=== PATIENT | female | born 1940 | race Caucasian/White ===

== ENCOUNTER 2020-02-25 09:28 | Outpatient (REF) | payer MEDICARE, OTHER, SELFPAY ==
[2020-02-25 09:50] LABS: MANUAL DIFF FLAG NO
[2020-02-25 09:53] LABS: Basophils Percent Auto 0.6 % (0-2); Eosinophils Absolute Auto 0.1 X10*3/uL (0.0-0.4); Hematocrit 39.6 % (37-47); Hemoglobin 12.7 g/dl (12.0-16.0); Imm Gran Abs Auto 0.01 X10*3/uL (0.00-0.03); Imm Gran Pct Auto 0.2 % (0.0-0.4); Lymphocytes Absolute Auto 1.8 X10*3/uL (1.2-4.9); Lymphocytes Percent Auto 35.1 % (20-40); Mean Corpuscular HGB Conc 32.1 g/dl (31.0-35.0); Mean Corpuscular Volume 105.9 fL (80-98); Mean Platelet Volume 9.7 fL (9.4-12.3); Monocytes Absolute Auto 0.3 X10*3/uL (0.1-1.2); Monocytes Percent Auto 6.8 % (2-11); Neutrophils Absolute Auto 2.8 X10*3/uL (2.0-8.3); Neutrophils Percent Auto 56.3 % (45-73); Platelet Count 214 X10*3/uL (160-400); Red Blood Count 3.74 X10*6/uL (4.20-5.50); Red Cell Distribution Width 11.5 % (11.0-16.0)
[2020-02-25 10:20] LABS: Alanine Aminotransferase 8 U/L (0-31); Albumin Level 4.4 g/dL (3.5-5.0); Alkaline Phosphatase 40 U/L (39-117); Anion Gap 10 (12-20); Aspartate Amino Transferase 15 U/L (5-31); Bilirubin Total 0.7 mg/dL (0.0-1.0); Blood Urea Nitrogen 17 mg/dL (9-16); C Reactive Protein 0.11 mg/dL (< or = 0.50); Calcium 9.7 mg/dL (8.4-10.2); Carbon Dioxide 30 mmol/L (22-29); Chloride 104 mmol/L (96-108); Estimated Glomerular Filt Rate > 60; Glucose Random 96 mg/dL (60-115); Potassium 4.1 mmol/l (3.3-5.1); Sodium 140 mmol/L (135-145); Total Protein 6.9 g/dL (6.5-8.0)
[2020-02-25 11:57] LABS: Erythrocyte Sedimentation Rate 10 MM/HR (0-20)
== END 2020-02-25 09:29 | disposition home or self-care (01) ==
LOC: HO.LAB 09:28
PROVIDERS: PCP Internal Medicine; Visit Provider Student in an Organized Health Care Education/Training Program
DX: M06.00 Rheumatoid arthritis without rheumatoid factor, unspecified site (principal)
CPT/HCPCS: 36415; 80053; 85025; 85652; 86140

== ENCOUNTER → 2020-02-26 10:14 | Outpatient (BNVA) | payer MEDICARE, OTHER, SELFPAY | PROVIDERS: PCP Internal Medicine; Visit Provider Student in an Organized Health Care Education/Training Program | DX: M06.00 Rheumatoid arthritis without rheumatoid factor, unspecified site (principal); Z79.899 Other long term (current) drug therapy | CPT/HCPCS: 99213 ==

== ENCOUNTER 2020-07-22 08:12 | Outpatient (REF) | payer MEDICARE, OTHER, SELFPAY ==
[2020-07-22 08:51] LABS: MANUAL DIFF FLAG NO
[2020-07-22 08:54] LABS: Basophils Percent Auto 0.6 % (0-2); Eosinophils Percent Auto 0.4 % (0-4); Hematocrit 39.6 % (37-47); Hemoglobin 12.7 g/dl (12.0-16.0); Imm Gran Abs Auto 0.01 X10*3/uL (0.00-0.03); Imm Gran Pct Auto 0.2 % (0.0-0.4); Lymphocytes Absolute Auto 1.4 X10*3/uL (1.2-4.9); Lymphocytes Percent Auto 27.5 % (20-40); Mean Corpuscular HGB Conc 32.1 g/dl (31.0-35.0); Mean Corpuscular Volume 105.9 fL (80-98); Mean Platelet Volume 9.8 fL (9.4-12.3); Monocytes Absolute Auto 0.3 X10*3/uL (0.1-1.2); Monocytes Percent Auto 5.8 % (2-11); Neutrophils Absolute Auto 3.4 X10*3/uL (2.0-8.3); Neutrophils Percent Auto 65.5 % (45-73); Platelet Count 273 X10*3/uL (160-400); Red Blood Count 3.74 X10*6/uL (4.20-5.50); Red Cell Distribution Width 11.8 % (11.0-16.0); White Blood Count 5.2 X10*3/uL (4.8-10.8)
[2020-07-22 09:27] LABS: Alanine Aminotransferase 10 U/L (0-31); Albumin Level 4.4 g/dL (3.5-5.0); Alkaline Phosphatase 43 U/L (39-117); Anion Gap 14 (12-20); Aspartate Amino Transferase 18 U/L (5-31); Bilirubin Total 0.6 mg/dL (0.0-1.0); Blood Urea Nitrogen 22 mg/dL (9-16); C Reactive Protein 0.15 mg/dL (< or = 0.50); Calcium 9.9 mg/dL (8.4-10.2); Carbon Dioxide 26 mmol/L (22-29); Chloride 106 mmol/L (96-108); Estimated Glomerular Filt Rate > 60; Glucose Random 88 mg/dL (60-115); Potassium 4.2 mmol/L (3.3-5.1); Sodium 142 mmol/L (135-145)
[2020-07-22 09:54] LABS: Erythrocyte Sedimentation Rate 10 MM/HR (0-20)
== END 2020-07-22 08:13 | disposition home or self-care (01) ==
LOC: HO.LAB 08:12
PROVIDERS: PCP Internal Medicine; Visit Provider Student in an Organized Health Care Education/Training Program
DX: M06.00 Rheumatoid arthritis without rheumatoid factor, unspecified site (principal)
CPT/HCPCS: 36415; 80053; 85025; 85652; 86140

== ENCOUNTER → 2020-07-23 10:51 | Outpatient (BNVA) | payer MEDICARE, OTHER, SELFPAY | PROVIDERS: PCP Internal Medicine; Visit Provider Student in an Organized Health Care Education/Training Program | DX: M06.00 Rheumatoid arthritis without rheumatoid factor, unspecified site (principal); Z79.899 Other long term (current) drug therapy | CPT/HCPCS: 99212 ==

== ENCOUNTER 2020-08-26 10:42 | Outpatient (REF) | payer MEDICARE, OTHER, SELFPAY ==
[2020-08-26 12:26] LABS: Basophils Percent Auto 0.6 % (0-2); Eosinophils Absolute Auto 0.1 X10*3/uL (0.0-0.4); Eosinophils Percent Auto 0.8 % (0-4); Hematocrit 39.9 % (37-47); Hemoglobin 12.9 g/dl (12.0-16.0); Imm Gran Abs Auto 0.01 X10*3/uL (0.00-0.03); Imm Gran Pct Auto 0.2 % (0.0-0.4); Lymphocytes Percent Auto 30.3 % (20-40); MANUAL DIFF FLAG SCAN; Mean Corpuscular HGB Conc 32.3 g/dl (31.0-35.0); Mean Corpuscular Hemoglobin 33.7 pg (27.0-33.0); Mean Corpuscular Volume 104.2 fL (80-98); Mean Platelet Volume 10.3 fL (9.4-12.3); Monocytes Absolute Auto 0.4 X10*3/uL (0.1-1.2); Monocytes Percent Auto 5.9 % (2-11); Neutrophils Absolute Auto 4.1 X10*3/uL (2.0-8.3); Neutrophils Percent Auto 62.2 % (45-73); Platelet Count 246 X10*3/uL (160-400); Red Blood Count 3.83 X10*6/uL (4.20-5.50); Red Cell Distribution Width 11.5 % (11.0-16.0); SCAN SMEAR FLAG 1; White Blood Count 6.6 X10*3/uL (4.8-10.8)
[2020-08-26 13:23] LABS: SLIDE REVIEW VERIFIED
== END 2020-08-26 10:43 | disposition home or self-care (01) ==
LOC: HO.10HDL 10:42
PROVIDERS: Visit Provider Internal Medicine
DX: M06.00 Rheumatoid arthritis without rheumatoid factor, unspecified site (principal)
CPT/HCPCS: 36415; 85025

== ENCOUNTER 2020-11-21 13:54 | Outpatient (REF) | payer MEDICARE, OTHER, SELFPAY ==
[2020-11-21 14:24] LABS: MANUAL DIFF FLAG NO
[2020-11-21 14:27] LABS: Basophils Percent Auto 0.5 % (0-2); Eosinophils Absolute Auto 0.1 X10*3/uL (0.0-0.4); Eosinophils Percent Auto 1.1 % (0-4); Hematocrit 38.5 % (37-47); Hemoglobin 12.5 g/dl (12.0-16.0); Imm Gran Abs Auto 0.01 X10*3/uL (0.00-0.03); Imm Gran Pct Auto 0.2 % (0.0-0.4); Lymphocytes Percent Auto 32.6 % (20-40); Mean Corpuscular HGB Conc 32.5 g/dl (31.0-35.0); Mean Corpuscular Volume 104.6 fL (80-98); Mean Platelet Volume 9.9 fL (9.4-12.3); Monocytes Absolute Auto 0.4 X10*3/uL (0.1-1.2); Monocytes Percent Auto 6.9 % (2-11); Neutrophils Absolute Auto 3.6 X10*3/uL (2.0-8.3); Neutrophils Percent Auto 58.7 % (45-73); Platelet Count 230 X10*3/uL (160-400); Red Blood Count 3.68 X10*6/uL (4.20-5.50); Red Cell Distribution Width 11.5 % (11.0-16.0); White Blood Count 6.1 X10*3/uL (4.8-10.8)
[2020-11-21 14:49] LABS: Alanine Aminotransferase 8 U/L (0-31); Albumin Level 4.4 g/dL (3.5-5.0); Alkaline Phosphatase 42 U/L (39-117); Anion Gap 12 (12-20); Aspartate Amino Transferase 16 U/L (5-31); Bilirubin Total 0.5 mg/dL (0.0-1.0); Blood Urea Nitrogen 20 mg/dL (9-16); C Reactive Protein 0.08 mg/dL (< or = 0.50); Calcium 10.2 mg/dL (8.4-10.2); Carbon Dioxide 27 mmol/L (22-29); Chloride 107 mmol/L (96-108); Estimated Glomerular Filt Rate > 60; Glucose Random 81 mg/dL (60-115); Potassium 4.4 mmol/L (3.3-5.1); Sodium 142 mmol/L (135-145)
[2020-11-21 15:13] LABS: Erythrocyte Sedimentation Rate 8 MM/HR (0-20)
== END 2020-11-21 13:55 | disposition home or self-care (01) ==
LOC: HO.LAB 13:54
PROVIDERS: PCP Internal Medicine; Visit Provider Student in an Organized Health Care Education/Training Program
DX: M06.00 Rheumatoid arthritis without rheumatoid factor, unspecified site (principal)
CPT/HCPCS: 36415; 80053; 85025; 85652; 86140

== ENCOUNTER → 2020-11-25 10:17 | Outpatient (BNVA) | payer MEDICARE, OTHER, SELFPAY | PROVIDERS: PCP Internal Medicine; Visit Provider Student in an Organized Health Care Education/Training Program | DX: M06.00 Rheumatoid arthritis without rheumatoid factor, unspecified site (principal) | CPT/HCPCS: 99212 ==

== ENCOUNTER 2021-01-27 10:48 | Outpatient (REF) | payer MEDICARE, OTHER, SELFPAY ==
--- NOTE | ~2021-01-27 | MM_ITS ---
EXAMINATION: MM SCREENING DIGITAL BREAST TOMOSYNTHESIS, BILATERAL CLINICAL INFORMATION: Screening. Asymptomatic. The lifetime risk of breast cancer based on the Tyrer-Cuzick Model is 0.9%. COMPARISON: Mammography: January 25, 2019 and studies dating back to February 23, 2008 TECHNIQUE: Digital breast tomosynthesis is performed in both the craniocaudal and mediolateral oblique views along with computer-aided detection (CAD). Synthesized 2D images are generated from the tomosynthesis. FINDINGS: There are scattered areas of fibroglandular density (ACR BI-RADS breast composition Category b). There are no significant masses, abnormal calcifications, or other abnormalities. MM/MM tomosynthesis screening BI IMPRESSION: There are no significant changes from prior study. ASSESSMENT: BI-RADS 1: Negative RECOMMENDATION: Routine annual mammography screening. This patient's information was entered into a reminder system with a target due date for their next mammogram.
== END 2021-01-27 10:49 | disposition home or self-care (01) ==
LOC: HO.MAMMO 10:48
PROVIDERS: PCP Internal Medicine; Visit Provider Internal Medicine
DX: Z12.31 Encounter for screening mammogram for malignant neoplasm of breast (principal)
CPT/HCPCS: 77063; 77067

== ENCOUNTER 2021-02-03 11:31 | Outpatient (REF) | payer MEDICARE, OTHER, SELFPAY ==
[2021-02-03 13:54] LABS: MANUAL DIFF FLAG NO
[2021-02-03 14:02] LABS: Basophils Percent Auto 0.3 % (0-2); Eosinophils Percent Auto 0.5 % (0-4); Hemoglobin 12.4 g/dl (12.0-16.0); Imm Gran Abs Auto 0.01 X10*3/uL (0.00-0.03); Imm Gran Pct Auto 0.2 % (0.0-0.4); Lymphocytes Absolute Auto 1.3 X10*3/uL (1.2-4.9); Lymphocytes Percent Auto 22.5 % (20-40); Mean Corpuscular HGB Conc 31.8 g/dl (31.0-35.0); Mean Corpuscular Hemoglobin 33.3 pg (27.0-33.0); Mean Corpuscular Volume 104.8 fL (80-98); Mean Platelet Volume 10.3 fL (9.4-12.3); Monocytes Absolute Auto 0.4 X10*3/uL (0.1-1.2); Monocytes Percent Auto 6.4 % (2-11); Neutrophils Absolute Auto 4.2 X10*3/uL (2.0-8.3); Neutrophils Percent Auto 70.1 % (45-73); Platelet Count 253 X10*3/uL (160-400); Red Blood Count 3.72 X10*6/uL (4.20-5.50); Red Cell Distribution Width 11.6 % (11.0-16.0)
[2021-02-03 14:24] LABS: Alanine Aminotransferase 10 U/L (0-31); Albumin Level 4.3 g/dL (3.5-5.0); Alkaline Phosphatase 40 U/L (39-117); Anion Gap 13 (12-20); Aspartate Amino Transferase 16 U/L (5-31); Bilirubin Total 0.4 mg/dL (0.0-1.0); Blood Urea Nitrogen 21 mg/dL (9-16); Calcium 9.9 mg/dL (8.4-10.2); Carbon Dioxide 28 mmol/L (22-29); Chloride 105 mmol/L (96-108); Cholesterol 219 mg/dL; Estimated Glomerular Filt Rate > 60; Glucose Random 82 mg/dL (60-115); Potassium 4.3 mmol/L (3.3-5.1); Sodium 142 mmol/L (135-145); Total Protein 6.7 g/dL (6.5-8.0)
== END 2021-02-03 11:32 | disposition home or self-care (01) ==
LOC: HO.10HDL 11:31
PROVIDERS: Visit Provider Internal Medicine
DX: M81.0 Age-related osteoporosis without current pathological fracture (principal); K57.90 Diverticulosis of intestine, part unspecified, without perforation or abscess without bleeding; M06.00 Rheumatoid arthritis without rheumatoid factor, unspecified site
CPT/HCPCS: 36415; 80053; 82465; 85025

== ENCOUNTER 2021-04-07 12:45 | Outpatient (REF) | payer MEDICARE, OTHER, SELFPAY ==
[2021-04-07 13:06] LABS: MANUAL DIFF FLAG NO
[2021-04-07 13:33] LABS: Basophils Percent Auto 0.4 % (0-2); Eosinophils Percent Auto 0.7 % (0-4); Hematocrit 38.4 % (37.0-47.0); Hemoglobin 12.4 g/dl (12.0-16.0); Imm Gran Abs Auto 0.01 X10*3/uL (0.00-0.03); Imm Gran Pct Auto 0.2 % (0.0-0.4); Lymphocytes Absolute Auto 1.8 X10*3/uL (1.2-4.9); Lymphocytes Percent Auto 32.4 % (20-40); Mean Corpuscular HGB Conc 32.3 g/dl (31.0-35.0); Mean Corpuscular Hemoglobin 33.8 pg (27.0-33.0); Mean Corpuscular Volume 104.6 fL (80.0-98.0); Mean Platelet Volume 9.9 fL (9.4-12.3); Monocytes Absolute Auto 0.4 X10*3/uL (0.1-1.2); Monocytes Percent Auto 7.7 % (2-11); Neutrophils Absolute Auto 3.3 x10*3/uL (2.0-8.3); Neutrophils Percent Auto 58.6 % (45-73); Platelet Count 228 X10*3/uL (160-400); Red Blood Count 3.67 X10*6/uL (4.20-5.50); Red Cell Distribution Width 11.5 % (11.0-16.0); White Blood Count 5.7 X10*3/uL (4.8-10.8)
[2021-04-07 13:52] LABS: Alanine Aminotransferase 9 U/L (0-31); Albumin Level 4.1 g/dL (3.5-5.0); Alkaline Phosphatase 50 U/L (39-117); Anion Gap 11 (12-20); Aspartate Amino Transferase 14 U/L (5-31); Bilirubin Total 0.3 mg/dL (0.0-1.0); Blood Urea Nitrogen 22 mg/dL (9-16); C Reactive Protein 0.14 mg/dL (< or = 0.50); Calcium 9.8 mg/dL (8.4-10.2); Carbon Dioxide 29 mmol/L (22-29); Chloride 105 mmol/L (96-108); Estimated Glomerular Filt Rate > 60; Glucose Random 80 mg/dL (60-115); Potassium 4.3 mmol/L (3.3-5.1); Sodium 141 mmol/L (135-145); Total Protein 6.7 g/dL (6.5-8.0)
[2021-04-07 14:41] LABS: Erythrocyte Sedimentation Rate 12 MM/HR (0-20)
== END 2021-04-07 12:46 | disposition home or self-care (01) ==
LOC: HO.LAB 12:45
PROVIDERS: PCP Internal Medicine; Visit Provider Student in an Organized Health Care Education/Training Program
DX: M06.00 Rheumatoid arthritis without rheumatoid factor, unspecified site (principal)
CPT/HCPCS: 36415; 80053; 85025; 85652; 86140

== ENCOUNTER → 2021-04-08 10:47 | Outpatient (BNVA) | payer MEDICARE, OTHER, SELFPAY | PROVIDERS: PCP Internal Medicine; Visit Provider Nurse Practitioner Family | DX: M06.00 Rheumatoid arthritis without rheumatoid factor, unspecified site (principal) | CPT/HCPCS: 99212 ==

== ENCOUNTER 2021-07-07 13:25 | Outpatient (REF) | payer MEDICARE, OTHER, SELFPAY ==
[2021-07-07 13:45] LABS: MANUAL DIFF FLAG NO
[2021-07-07 14:02] LABS: Basophils Percent Auto 0.4 % (0-2); Eosinophils Absolute Auto 0.1 X10*3/uL (0.0-0.4); Eosinophils Percent Auto 0.9 % (0-4); Hematocrit 37.1 % (37.0-47.0); Imm Gran Abs Auto 0.02 X10*3/uL (0.00-0.03); Imm Gran Pct Auto 0.4 % (0.0-0.4); Lymphocytes Absolute Auto 1.9 X10*3/uL (1.2-4.9); Lymphocytes Percent Auto 33.4 % (20-40); Mean Corpuscular HGB Conc 32.3 g/dl (31.0-35.0); Mean Corpuscular Hemoglobin 33.5 pg (27.0-33.0); Mean Corpuscular Volume 103.6 fL (80.0-98.0); Mean Platelet Volume 9.9 fL (9.4-12.3); Monocytes Absolute Auto 0.4 X10*3/uL (0.1-1.2); Monocytes Percent Auto 6.9 % (2-11); Neutrophils Absolute Auto 3.2 x10*3/uL (2.0-8.3); Platelet Count 213 X10*3/uL (160-400); Red Blood Count 3.58 X10*6/uL (4.20-5.50); Red Cell Distribution Width 11.9 % (11.0-16.0); White Blood Count 5.5 X10*3/uL (4.8-10.8)
[2021-07-07 14:25] LABS: Alanine Aminotransferase 6 U/L (0-31); Albumin Level 4.3 g/dL (3.5-5.0); Alkaline Phosphatase 44 U/L (39-117); Anion Gap 9 (12-20); Aspartate Amino Transferase 15 U/L (5-31); Bilirubin Total 0.5 mg/dL (0.0-1.0); Blood Urea Nitrogen 22 mg/dL (9-16); C Reactive Protein 0.14 mg/dL (< or = 0.50); Calcium 9.9 mg/dL (8.4-10.2); Carbon Dioxide 31 mmol/L (22-29); Chloride 104 mmol/L (96-108); Estimated Glomerular Filt Rate > 60; Glucose Random 82 mg/dL (60-115); Potassium 4.2 mmol/L (3.3-5.1); Sodium 140 mmol/L (135-145); Total Protein 6.8 g/dL (6.5-8.0)
[2021-07-07 14:42] LABS: Erythrocyte Sedimentation Rate 8 MM/HR (0-20)
== END 2021-07-07 13:26 | disposition home or self-care (01) ==
LOC: HO.LAB 13:25
PROVIDERS: PCP Internal Medicine; Visit Provider Nurse Practitioner Family
DX: M06.00 Rheumatoid arthritis without rheumatoid factor, unspecified site (principal)
CPT/HCPCS: 36415; 80053; 85025; 85652; 86140

== ENCOUNTER → 2021-07-09 09:43 | Outpatient (BNVA) | payer MEDICARE, OTHER, SELFPAY | PROVIDERS: PCP Internal Medicine; Visit Provider Nurse Practitioner Family | DX: M06.00 Rheumatoid arthritis without rheumatoid factor, unspecified site (principal); Z79.899 Other long term (current) drug therapy | CPT/HCPCS: 99212 ==

== ENCOUNTER 2021-09-30 13:24 | Outpatient (REF) | payer MEDICARE, OTHER, SELFPAY ==
[2021-09-30 13:41] LABS: MANUAL DIFF FLAG NO
[2021-09-30 14:15] LABS: Basophils Percent Auto 0.5 % (0-2); Eosinophils Absolute Auto 0.1 X10*3/uL (0.0-0.4); Eosinophils Percent Auto 0.9 % (0-4); Hematocrit 37.5 % (37.0-47.0); Hemoglobin 12.3 g/dl (12.0-16.0); Imm Gran Abs Auto 0.02 X10*3/uL (0.00-0.03); Imm Gran Pct Auto 0.3 % (0.0-0.4); Lymphocytes Absolute Auto 1.8 X10*3/uL (1.2-4.9); Lymphocytes Percent Auto 30.9 % (20-40); Mean Corpuscular HGB Conc 32.8 g/dl (31.0-35.0); Mean Corpuscular Hemoglobin 33.7 pg (27.0-33.0); Mean Corpuscular Volume 102.7 fL (80.0-98.0); Mean Platelet Volume 10.2 fL (9.4-12.3); Monocytes Absolute Auto 0.4 X10*3/uL (0.1-1.2); Neutrophils Absolute Auto 3.5 x10*3/uL (2.0-8.3); Neutrophils Percent Auto 60.4 % (45-73); Platelet Count 221 X10*3/uL (160-400); Red Blood Count 3.65 X10*6/uL (4.20-5.50); Red Cell Distribution Width 11.8 % (11.0-16.0); White Blood Count 5.7 X10*3/uL (4.8-10.8)
[2021-09-30 14:40] LABS: Alanine Aminotransferase 11 U/L (0-31); Albumin Level 4.3 g/dL (3.5-5.0); Alkaline Phosphatase 42 U/L (39-117); Anion Gap 13 (12-20); Aspartate Amino Transferase 16 U/L (5-31); Bilirubin Total 0.4 mg/dL (0.0-1.0); Blood Urea Nitrogen 21 mg/dL (9-16); C Reactive Protein 0.11 mg/dL (< or = 0.50); Carbon Dioxide 26 mmol/L (22-29); Chloride 104 mmol/L (96-108); Estimated Glomerular Filt Rate > 60; Glucose Random 81 mg/dL (60-115); Potassium 3.8 mmol/L (3.3-5.1); Sodium 139 mmol/L (135-145); Total Protein 6.9 g/dL (6.5-8.0)
[2021-09-30 14:45] LABS: Erythrocyte Sedimentation Rate 8 MM/HR (0-20)
== END 2021-09-30 13:25 | disposition home or self-care (01) ==
LOC: HO.LAB 13:24
PROVIDERS: PCP Internal Medicine; Visit Provider Nurse Practitioner Family
DX: M06.00 Rheumatoid arthritis without rheumatoid factor, unspecified site (principal)
CPT/HCPCS: 36415; 80053; 85025; 85652; 86140

== ENCOUNTER → 2021-11-05 10:08 | Outpatient (BNVA) | payer MEDICARE, OTHER, SELFPAY | PROVIDERS: PCP Internal Medicine; Visit Provider Nurse Practitioner Family | DX: M06.00 Rheumatoid arthritis without rheumatoid factor, unspecified site (principal); Z79.899 Other long term (current) drug therapy | CPT/HCPCS: 99212 ==

== ENCOUNTER 2021-12-23 13:03 | Outpatient (REF) | payer MEDICARE, OTHER, SELFPAY ==
[2021-12-23 13:24] LABS: MANUAL DIFF FLAG NO
[2021-12-23 13:35] LABS: Basophils Percent Auto 0.4 % (0-2); Eosinophils Percent Auto 0.6 % (0-4); Hematocrit 38.8 % (37.0-47.0); Hemoglobin 12.8 g/dl (12.0-16.0); Imm Gran Abs Auto 0.01 X10*3/uL (0.00-0.03); Imm Gran Pct Auto 0.2 % (0.0-0.4); Lymphocytes Absolute Auto 1.6 X10*3/uL (1.2-4.9); Lymphocytes Percent Auto 31.7 % (20-40); Mean Corpuscular Hemoglobin 34.1 pg (27.0-33.0); Mean Corpuscular Volume 103.5 fL (80.0-98.0); Monocytes Absolute Auto 0.3 X10*3/uL (0.1-1.2); Monocytes Percent Auto 5.6 % (2-11); Neutrophils Absolute Auto 3.1 x10*3/uL (2.0-8.3); Neutrophils Percent Auto 61.5 % (45-73); Platelet Count 221 X10*3/uL (160-400); Red Blood Count 3.75 X10*6/uL (4.20-5.50); Red Cell Distribution Width 11.9 % (11.0-16.0)
[2021-12-23 14:18] LABS: Erythrocyte Sedimentation Rate 7 MM/HR (0-20)
[2021-12-23 14:20] LABS: Alanine Aminotransferase 8 U/L (0-31); Albumin Level 4.3 g/dL (3.5-5.0); Alkaline Phosphatase 42 U/L (39-117); Anion Gap 13 (12-20); Aspartate Amino Transferase 17 U/L (5-31); Bilirubin Total 0.5 mg/dL (0.0-1.0); Blood Urea Nitrogen 18 mg/dL (9-16); C Reactive Protein 0.08 mg/dL (< or = 0.50); Calcium 9.6 mg/dL (8.4-10.2); Carbon Dioxide 27 mmol/L (22-29); Chloride 104 mmol/L (96-108); Estimated Glomerular Filt Rate > 60; Glucose Random 105 mg/dL (60-115); Sodium 140 mmol/L (135-145); Total Protein 6.9 g/dL (6.5-8.0)
== END 2021-12-23 13:04 | disposition home or self-care (01) ==
LOC: HO.LAB 13:03
PROVIDERS: PCP Internal Medicine; Visit Provider Nurse Practitioner Family
DX: M06.00 Rheumatoid arthritis without rheumatoid factor, unspecified site (principal)
CPT/HCPCS: 36415; 80053; 85025; 85652; 86140

== ENCOUNTER 2022-01-29 12:31 | Outpatient (REF) | payer MEDICARE, OTHER, SELFPAY ==
[2022-01-29 13:40] LABS: MANUAL DIFF FLAG NO
[2022-01-29 13:45] LABS: Basophils Percent Auto 0.5 % (0-2); Eosinophils Percent Auto 0.2 % (0-4); Hematocrit 40.2 % (37.0-47.0); Hemoglobin 13.1 g/dl (12.0-16.0); Imm Gran Abs Auto 0.01 X10*3/uL (0.00-0.03); Imm Gran Pct Auto 0.2 % (0.0-0.4); Lymphocytes Absolute Auto 1.3 X10*3/uL (1.2-4.9); Lymphocytes Percent Auto 20.2 % (20-40); Mean Corpuscular HGB Conc 32.6 g/dl (31.0-35.0); Mean Corpuscular Hemoglobin 33.5 pg (27.0-33.0); Mean Corpuscular Volume 102.8 fL (80.0-98.0); Mean Platelet Volume 10.4 fL (9.4-12.3); Monocytes Absolute Auto 0.4 X10*3/uL (0.1-1.2); Monocytes Percent Auto 5.6 % (2-11); Neutrophils Absolute Auto 4.7 x10*3/uL (2.0-8.3); Neutrophils Percent Auto 73.3 % (45-73); Platelet Count 235 X10*3/uL (160-400); Red Blood Count 3.91 X10*6/uL (4.20-5.50); Red Cell Distribution Width 11.6 % (11.0-16.0); White Blood Count 6.4 X10*3/uL (4.8-10.8)
[2022-01-29 14:02] LABS: Alanine Aminotransferase 12 U/L (0-31); Albumin Level 4.7 g/dL (3.5-5.0); Alkaline Phosphatase 45 U/L (39-117); Anion Gap 17 (12-20); Aspartate Amino Transferase 18 U/L (5-31); Bilirubin Total 0.4 mg/dL (0.0-1.0); Blood Urea Nitrogen 23 mg/dL (9-16); Calcium 10.5 mg/dL (8.4-10.2); Carbon Dioxide 27 mmol/L (22-29); Chloride 102 mmol/L (96-108); Cholesterol 220 mg/dL; Estimated Glomerular Filt Rate > 60; Glucose Random 90 mg/dL (60-115); Potassium 4.3 mmol/L (3.3-5.1); Sodium 142 mmol/L (135-145); Total Protein 7.4 g/dL (6.5-8.0)
[2022-01-29 14:22] LABS: Vitamin D 25-OH Total 45.7 ng/mL (>30)
== END 2022-01-29 12:32 | disposition home or self-care (01) ==
LOC: HO.10HDL 12:31
PROVIDERS: Visit Provider Internal Medicine
DX: M81.0 Age-related osteoporosis without current pathological fracture (principal); K57.90 Diverticulosis of intestine, part unspecified, without perforation or abscess without bleeding; M05.9 Rheumatoid arthritis with rheumatoid factor, unspecified
CPT/HCPCS: 36415; 80053; 82306; 82465; 85025

== ENCOUNTER → 2022-02-03 13:26 | Outpatient (BNVA) | payer MEDICARE, OTHER, SELFPAY | PROVIDERS: PCP Internal Medicine; Visit Provider Nurse Practitioner Family | DX: M06.00 Rheumatoid arthritis without rheumatoid factor, unspecified site (principal); E83.52 Hypercalcemia; H61.22 Impacted cerumen, left ear | CPT/HCPCS: 99212 ==

== ENCOUNTER 2022-05-04 13:33 | Outpatient (REF) | payer MEDICARE, OTHER, SELFPAY ==
[2022-05-04 13:59] LABS: MANUAL DIFF FLAG NO
[2022-05-04 14:09] LABS: Basophils Percent Auto 0.7 % (0-2); Eosinophils Percent Auto 0.5 % (0-4); Hematocrit 39.2 % (37.0-47.0); Hemoglobin 12.9 g/dl (12.0-16.0); Imm Gran Abs Auto 0.01 X10*3/uL (0.00-0.03); Imm Gran Pct Auto 0.2 % (0.0-0.4); Lymphocytes Absolute Auto 1.3 X10*3/uL (1.2-4.9); Lymphocytes Percent Auto 20.8 % (20-40); Mean Corpuscular HGB Conc 32.9 g/dl (31.0-35.0); Mean Corpuscular Volume 103.4 fL (80.0-98.0); Mean Platelet Volume 9.7 fL (9.4-12.3); Monocytes Absolute Auto 0.3 X10*3/uL (0.1-1.2); Monocytes Percent Auto 5.5 % (2-11); Neutrophils Absolute Auto 4.4 x10*3/uL (2.0-8.3); Neutrophils Percent Auto 72.3 % (45-73); Platelet Count 230 X10*3/uL (160-400); Red Blood Count 3.79 X10*6/uL (4.20-5.50); Red Cell Distribution Width 11.4 % (11.0-16.0); White Blood Count 6.1 X10*3/uL (4.8-10.8)
[2022-05-04 14:47] LABS: Erythrocyte Sedimentation Rate 7 MM/HR (0-20)
[2022-05-04 15:57] LABS: Alanine Aminotransferase 11 U/L (0-31); Aspartate Amino Transferase 19 U/L (5-31); C Reactive Protein < 0.10 mg/dL (< or = 0.50); Estimated Glomerular Filt Rate > 60
== END 2022-05-04 13:34 | disposition home or self-care (01) ==
LOC: HO.LAB 13:33
PROVIDERS: PCP Internal Medicine; Visit Provider Nurse Practitioner Family
DX: M06.00 Rheumatoid arthritis without rheumatoid factor, unspecified site (principal); E83.52 Hypercalcemia; Z79.899 Other long term (current) drug therapy
CPT/HCPCS: 36415; 82310; 82565; 84450; 84460; 85025; 85652; 86140

== ENCOUNTER → 2022-06-18 13:08 | Outpatient (BNVA) | payer MEDICARE, OTHER, SELFPAY | PROVIDERS: PCP Internal Medicine; Visit Provider Nurse Practitioner Family | DX: M06.00 Rheumatoid arthritis without rheumatoid factor, unspecified site (principal); E83.52 Hypercalcemia; Z79.899 Other long term (current) drug therapy | CPT/HCPCS: 99212 ==

== ENCOUNTER 2022-08-03 15:12 | Outpatient (REF) | payer MEDICARE, OTHER, SELFPAY ==
[2022-08-03 15:23] LABS: MANUAL DIFF FLAG NO
[2022-08-03 16:04] LABS: Basophils Percent Auto 0.5 % (0-2); Eosinophils Percent Auto 0.6 % (0-4); Hematocrit 40.2 % (37.0-47.0); Imm Gran Abs Auto 0.02 X10*3/uL (0.00-0.03); Imm Gran Pct Auto 0.3 % (0.0-0.4); Lymphocytes Absolute Auto 1.6 X10*3/uL (1.2-4.9); Lymphocytes Percent Auto 25.8 % (20-40); Mean Corpuscular HGB Conc 32.3 g/dl (31.0-35.0); Mean Corpuscular Hemoglobin 33.6 pg (27.0-33.0); Mean Corpuscular Volume 103.9 fL (80.0-98.0); Mean Platelet Volume 9.8 fL (9.4-12.3); Monocytes Absolute Auto 0.4 X10*3/uL (0.1-1.2); Monocytes Percent Auto 6.2 % (2-11); Neutrophils Absolute Auto 4.1 x10*3/uL (2.0-8.3); Neutrophils Percent Auto 66.6 % (45-73); Platelet Count 243 X10*3/uL (160-400); Red Blood Count 3.87 X10*6/uL (4.20-5.50); Red Cell Distribution Width 11.8 % (11.0-16.0); White Blood Count 6.2 X10*3/uL (4.8-10.8)
[2022-08-03 16:38] LABS: Erythrocyte Sedimentation Rate 7 MM/HR (0-20)
[2022-08-03 16:53] LABS: Alanine Aminotransferase 8 U/L (0-31); Aspartate Amino Transferase 17 U/L (5-31); C Reactive Protein 0.12 mg/dL (< or = 0.50); Estimated Glomerular Filt Rate 53
== END 2022-08-03 15:13 | disposition home or self-care (01) ==
LOC: HO.LAB 15:12
PROVIDERS: PCP Internal Medicine; Visit Provider Nurse Practitioner Family
DX: M06.00 Rheumatoid arthritis without rheumatoid factor, unspecified site (principal); Z79.899 Other long term (current) drug therapy
CPT/HCPCS: 36415; 82565; 84450; 84460; 85025; 85652; 86140

== ENCOUNTER 2022-11-15 09:41 | Outpatient (REF) | payer MEDICARE, OTHER, SELFPAY | END 2022-11-15 09:42 | disposition home or self-care (01) | LOC: HO.LAB 09:41 | PROVIDERS: PCP Internal Medicine; Visit Provider Nurse Practitioner Family | DX: M06.00 Rheumatoid arthritis without rheumatoid factor, unspecified site (principal) | CPT/HCPCS: 36415; 80053; 85025; 85652; 86140 ==

== ENCOUNTER → 2022-11-18 08:58 | Outpatient (BNVA) | payer MEDICARE, OTHER, SELFPAY | PROVIDERS: PCP Internal Medicine; Visit Provider Internal Medicine Rheumatology | DX: M06.00 Rheumatoid arthritis without rheumatoid factor, unspecified site (principal); Z79.899 Other long term (current) drug therapy | CPT/HCPCS: 99212 ==

== ENCOUNTER 2022-12-21 10:16 | Outpatient (REF) | payer MEDICARE, OTHER, SELFPAY ==
[2022-12-21 10:36] LABS: MANUAL DIFF FLAG NO
[2022-12-21 11:04] LABS: Basophils Percent Auto 0.3 % (0-2); Eosinophils Percent Auto 0.7 % (0-4); Hematocrit 40.9 % (37.0-47.0); Hemoglobin 13.2 g/dl (12.0-16.0); Imm Gran Abs Auto 0.01 X10*3/uL (0.00-0.03); Imm Gran Pct Auto 0.2 % (0.0-0.4); Lymphocytes Absolute Auto 1.8 X10*3/uL (1.2-4.9); Mean Corpuscular HGB Conc 32.3 g/dl (31.0-35.0); Mean Corpuscular Hemoglobin 33.8 pg (27.0-33.0); Mean Corpuscular Volume 104.9 fL (80.0-98.0); Mean Platelet Volume 10.1 fL (9.4-12.3); Monocytes Absolute Auto 0.4 X10*3/uL (0.1-1.2); Monocytes Percent Auto 7.1 % (2-11); Neutrophils Absolute Auto 3.5 x10*3/uL (2.0-8.3); Neutrophils Percent Auto 60.7 % (45-73); Platelet Count 234 X10*3/uL (160-400); Red Cell Distribution Width 11.9 % (11.0-16.0); White Blood Count 5.8 X10*3/uL (4.8-10.8)
[2022-12-21 11:40] LABS: Alanine Aminotransferase 8 U/L (0-31); Aspartate Amino Transferase 17 U/L (5-31); C Reactive Protein 0.12 mg/dL (< or = 0.50); Erythrocyte Sedimentation Rate 9 MM/HR (0-20); Estimated Glomerular Filt Rate > 60
== END 2022-12-21 10:17 | disposition home or self-care (01) ==
LOC: HO.LAB 10:16
PROVIDERS: PCP Internal Medicine; Visit Provider Internal Medicine Rheumatology
DX: M06.00 Rheumatoid arthritis without rheumatoid factor, unspecified site (principal); Z79.899 Other long term (current) drug therapy
CPT/HCPCS: 36415; 82565; 84450; 84460; 85025; 85652; 86140

== ENCOUNTER 2023-03-18 12:09 | Outpatient (REF) | payer MEDICARE, OTHER, SELFPAY ==
[2023-03-18 12:30] LABS: MANUAL DIFF FLAG NO
[2023-03-18 12:56] LABS: Basophils Percent Auto 0.6 % (0-2); Eosinophils Percent Auto 0.4 % (0-4); Hematocrit 39.6 % (37.0-47.0); Hemoglobin 13.1 g/dl (12.0-16.0); Imm Gran Abs Auto 0.01 X10*3/uL (0.00-0.03); Imm Gran Pct Auto 0.2 % (0.0-0.4); Lymphocytes Absolute Auto 1.3 X10*3/uL (1.2-4.9); Mean Corpuscular HGB Conc 33.1 g/dl (31.0-35.0); Mean Corpuscular Hemoglobin 34.2 pg (27.0-33.0); Mean Corpuscular Volume 103.4 fL (80.0-98.0); Mean Platelet Volume 10.1 fL (9.4-12.3); Monocytes Absolute Auto 0.3 X10*3/uL (0.1-1.2); Monocytes Percent Auto 6.2 % (2-11); Neutrophils Absolute Auto 3.6 x10*3/uL (2.0-8.3); Neutrophils Percent Auto 67.6 % (45-73); Platelet Count 234 X10*3/uL (160-400); Red Blood Count 3.83 X10*6/uL (4.20-5.50); Red Cell Distribution Width 11.9 % (11.0-16.0); White Blood Count 5.4 X10*3/uL (4.8-10.8)
[2023-03-18 13:45] LABS: Erythrocyte Sedimentation Rate 7 MM/HR (0-20)
[2023-03-18 14:11] LABS: Alanine Aminotransferase 8 U/L (0-31); Aspartate Amino Transferase 17 U/L (5-31); C Reactive Protein 0.11 mg/dL (< or = 0.50); Estimated Glomerular Filt Rate > 60
== END 2023-03-18 12:10 | disposition home or self-care (01) ==
LOC: HO.LAB 12:09
PROVIDERS: PCP Internal Medicine; Visit Provider Internal Medicine Rheumatology
DX: M06.00 Rheumatoid arthritis without rheumatoid factor, unspecified site (principal); Z79.899 Other long term (current) drug therapy
CPT/HCPCS: 36415; 82565; 84450; 84460; 85025; 85652; 86140

== ENCOUNTER 2023-03-21 13:12 | Outpatient (AMB) | payer MEDICARE, OTHER, SELFPAY ==
[2023-03-21 13:21] VITALS: BP 124/72; PULSE 109; TEMP 36.1; O2SAT 95; BMI 21.9
--- NOTE | 2023-03-21 13:21 | A.OFFVIS_ITS ---
Intake Vital Signs 03/21/23 13:21 Height 5 ft 3 in Weight 123 lb 7.342 oz BMI 21.9 BP 124/72 Blood Pressure Location Rt brachial Position Sitting Pulse 109 H Pulse Source Pulse Oximeter Temp 97 F Temp Source Skin Pulse Oximetry (%) 95 Oxygen Delivery Method Room Air Intake Visit Reasons: Rheumatoid Arthritis Intake Note: Patient presents today to follow up on RA. Reports no complaints today. Reports no pain. Photograph Tinter Required: No Accompanied by: Self / Same As Patient Allergies estrogens, conjugated [From Premarin] Allergy (Verified 03/21/23 13:23) vaginal bleeding Medication List - Last Reconciled 03/21/23 by Stephen Norman MD ascorbate calcium (vitamin C) 500 mg PO .every other day cholecalciferol (vitamin D3) 25 mcg PO DAILY ferrous sulfate 325 mg PO .once a week food supplemt, lactose-reduced (Ensure oral liquid) ea PO PRN leflunomide 10 mg PO DAILY HPI HPI Comments History of Present Illness Details The patient returns today for evaluation of her rheumatoid arthritis. She remains on leflunomide 10 mg daily. She says with this regimen she seems reasonably comfortable. She does not think she has had any side effects. We discussed previously about possibility of a DEXA to look into her risk for osteoporosis. She did have menopause at about age 48, likely surgically induced with a hysterectomy. She remains on ferrous sulfate that she takes once or twice a week because of a history of anemia. [facility] Surgical History History of exploratory laparotomy History of colostomy reversal H/O arthroscopy of left knee H/O: hysterectomy Social History Household Members: Family Housing: House 75 years or older and lives alone: No Alcohol intake: never Patient Tobacco Use Status: Never used Tobacco e-Cigarette/Vaping Use: Never Used Review of Systems Const Details: Negative for appetite change, weight change, fever, chills, malaise and fatigue Eyes Details: Negative for vision change, dry eyes,headaches and dizziness ENT Details: Negative for hearing change, tinnitus, oral ulcer, nose bleeds and oral dryness. Card Details: Negative chest pain, edema and syncope Resp Details: Negative for SOB, cough and wheezing GI Details: Negative indigestion/heartburn, nausea, abdominal pain, bowel changes, diarrhea, constipation and bloody stool. Skin/Breast Details: History of skin cancer, basal cell on the nose that was surgically removed. She does see Dermatology regularly for monitoring. Negative for itching, rash, hives, Raynaud's symptoms, sun sensitivity Endo Details: Negative for polyuria and polydypsia Brian/Lymph Details: Negative for excessive bruising or bleeding. Physical Exam Vital Signs: Last Vital Signs Temp 97 F 03/21/23 13:21 Pulse 109 H 03/21/23 13:21 BP 124/72 03/21/23 13:21 Pulse Ox 95 03/21/23 13:21 Oxygen Delivery Method Room Air 03/21/23 13:21 BMI result Body Mass Index 21.9 APPEARANCE: Patient in no acute distress EYES no redness, pupils equal and reactive to light, eyelids normal EXTREMITIES: No edema, no calf tenderness, normal peripheral pulses. JOINT EXAM:?? Cervical Spine:? Full range of motion without pain no tenderness. Thoracic Spine:? No scoliosis.? No tenderness on palpation. Lumbar Spine:? Alignment normal.? Full range of motion without pain, no tenderness.? Able to bend and touch her toes. Hands: LEFT: Normal pain-free range of motion with slight swelling at the 2nd and 3rd MCP joints but they are not tender. There is mild bony enlargement and tenderness at the base of the thumb. There is flexion deformity at the 5th PIP and DIP region. This looks like it might have been a result of a flexor tendon rupture in the past as there is no soft tissue swelling about the PIP or DIP in that finger. There is no sensory loss or thenar atrophy. Right: There is mild swelling without tenderness at the 3rd MCP. The 4th and 5th PIP is have flexion deformity, also likely due to previous tendon rupture as they do not show much synovitis and they are not tender. There is some nontender bony enlargement at the base of the thumb. There is no thenar atrophy or sensory loss. Wrists:? Normal pain-free range of motion without tenderness, swelling, increased warmth or erythema. Elbows: She lacks about 10-15 degrees of full extension of both elbows but motion is pain-free without tenderness, swelling, increased warmth or erythema. Shoulders:? Full range of motion without pain. No tenderness, weakness, swelling , increased warmth or erythema. Hips:? Full range of motion without pain. Hip bursa:? No tenderness. Knees:??Left: There is mild patellofemoral crepitus. She lacks about 10 degrees of full extension there is some mild medial tenderness without redness or effusion. There is no popliteal swelling or tenderness. Right: Normal pain-free range of motion with slight patellofemoral crepitus but no effusion, tenderness, swelling, increased warmth or erythema.? There is no effusion or crepitation Ankles: Left: AP motion is normal and pain-free but she lacks some full inversion and eversion. That motion is not particularly painful. There is some slight medial and lateral tenderness with slight swelling. Right:Normal pain- free range of motion without tenderness, swelling, increased warmth or erythema. Feet:? There is mild 1st MTP bony enlargement without tenderness in both feet. There is hammertoes from the 2nd through 4th toes but there is no tenderness. No other areas of tenderness, swelling, increased warmth or erythema.? Thickened toenails bilaterally ? 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 07/2015 Methotrexate 4 tabs weekly stopped and Leflunomide 20 mg lowered to 10mg. Shortly after lowering Leflunomide increased back up to 20 mg. Also on Leucovorin for MCV of 108. 05/2016- Off Methotrexate and Leflunomide with return of joint pain and swelling, restarted on leflunomide 20 mg daily. Leflunomide dose decreased to 10mg January 2022. Code(s): M06.00 - Rheumatoid arthritis without rheumatoid factor, unspecified site Plan Rheumatoid arthritis with what looks to be good control of synovitis with current low dose of leflunomide. She does have some underlying osteoarthritis i n the hands at the base of the thumbs but these are not currently symptomatic. She does not have any side effects with the leflunomide and the blood work looks good so we will continue with current treatment. Lab work would be due again in May and in July. We again discussed the recommended DEXA scan to look for possible risk factors for fractures and diagnosed sting osteoporosis. She is seems to agree to this procedure for now so we will schedule it and get back to her with the results. She may have a bone density or FRAX score severe enough to warrant antiresorptive therapy. Otherwise a follow-up to on her RA is recommended for 4 months. Orders: Orders Erythrocyte Sedimentation Rate Today M06.00 - Rheumatoid arthritis without rheumatoid factor, unspecified site Aspartate Amino Transferase Today M06.00 - Rheumatoid arthritis without rheumato id factor, unspecified site, Z79.899 - Other detention (current) drug therapy Complete Blood Count Auto Diff 1 Month M06.00 - Rheumatoid arthritis without rheumatoid factor, unspecified site, Z79.899 - Other detention (current) drug therapy Creatinine Today M06.00 - Rheumatoid arthritis without rheumatoid factor, unspecified site, Z79.899 - Other detention (current) drug therapy XR DEXA axial skeleton Today M06.00 - Rheumatoid arthritis without rheumatoid factor, unspecified site, N95.1 - Menopausal and female climacteric states C Reactive Protein Today M06.00 - Rheumatoid arthritis without rheumatoid factor, unspecified site Alanine Aminotransferase Today M06.00 - Rheumatoid arthritis without rheumatoid factor, unspecified site, Z79.899 - Other termite helper (current) drug therapy Coding Level of Care Code Est Pt Level 4 (08763) Diagnoses Menopausal state N95.1 termite treater helper use of drug Z79.899 Osteoarthritis of hands, bilateral M19.041; M19.042 Seronegative rheumatoid arthritis M06.00
== END 2023-03-21 14:16 | disposition home or self-care (01) ==
PROVIDERS: PCP Internal Medicine; Visit Provider Internal Medicine Rheumatology
DX: N95.1 Menopausal and female climacteric states (principal); Z79.899 Other long term (current) drug therapy; M19.041 Primary osteoarthritis, right hand; M19.042 Primary osteoarthritis, left hand; M06.00 Rheumatoid arthritis without rheumatoid factor, unspecified site
CPT/HCPCS: 99214

== ENCOUNTER → 2023-03-21 13:12 | Outpatient (BNVA) | payer MEDICARE, OTHER, SELFPAY | PROVIDERS: PCP Internal Medicine; Visit Provider Internal Medicine Rheumatology | DX: M06.00 Rheumatoid arthritis without rheumatoid factor, unspecified site (principal); M19.041 Primary osteoarthritis, right hand; M19.042 Primary osteoarthritis, left hand; N95.1 Menopausal and female climacteric states; Z79.899 Other long term (current) drug therapy | CPT/HCPCS: 99212 ==

== ENCOUNTER 2023-04-29 12:51 | Outpatient (REF) | payer MEDICARE, OTHER, SELFPAY ==
--- NOTE | ~2023-04-29 | MM_ITS ---
EXAMINATION: BONE DENSITOMETRY CLINICAL INDICATION: Menopausal and female climacteric states. COMPARISON: Previous BD dated 01/25/2019 and baseline BD dated 04/15/2005. TECHNIQUE: Using a [employer] DXA System (software version: 13.1) manufactured by [employer], dual-energy x-ray absorptiometry was performed of the lumbar spine and left hip. The images are of good technical quality. Summary results are attached. FINDINGS: LEFT FEMUR, NECK: Current: BMD 0.671 g/cm2, Z-score -0.1, T-score -2.6, osteoporosis. Prior: BMD 0.602 g/cm2. Baseline: BMD 0.688 g/cm2. LEFT FEMUR, TOTAL: Current: BMD 0.687 g/cm2, Z-score -0.1, T-score -2.5, osteoporosis, 2.2% increase from previous, 9.4% decrease from baseline (<5% change is not significant). Prior: BMD 0.672 g/cm2. Baseline: BMD 0.758 g/cm2. AP SPINE L1-L4: Current: BMD 1.075 g/cm2, Z-score 1.3, T-score -0.9, normal, 4.2% decrease from previous, 0.1% decrease from baseline (<5% change is not significant). Prior: BMD 1.122 g/cm2. Baseline: BMD 1.076 g/cm2. IDENTIFIED RISK FACTORS: Menopause, hysterectomy, parental hip fracture, height loss, osteoporosis, rheumatoid arthritis. HISTORY OF FRACTURE: None listed. MEDICATIONS: Calcium supplements or multivitamin, vitamin D. MM/XR DEXA axial skeleton IMPRESSION: 1. DIAGNOSIS: Osteoporosis based on the lowest T-score value of -2.6 in the femoral neck applying World Health Organization criteria. 2. 10-YEAR FRACTURE RISK PREDICTION, FRAX: According to the guidelines, FRAX calculation should only be performed on patients in the osteopenia bone density category. Therefore, FRAX was not performed on this patient. 3. Treatment Recommendations: NOF guidelines recommend consideration for treatment in postmenopausal women and men age 50 and older presenting with the following: -A hip or vertebral (clinical or morphometric) fracture. -T-score less than or equal to -2.5 at the femoral neck or spine after appropriate evaluation to exclude secondary causes. -Low bone mass at the hip or spine and a 10-year fracture probability by FRAX of greater than or equal to 3% for hip fracture or greater than or equal to 20% for major osteoporotic fracture based on the [place] adapted WHO algorithm. 4. Other Recommendations: All treatment decisions require clinical judgment and consideration of individual patient factors, including patient preferences, comorbidities, previous drug use, risk factors not captured in the FRAX model (e.g. frailty, falls, vitamin D deficiency, increased bone turnover, interval significant decline in bone density) and possible under or overestimation of fracture risk by FRAX. Additional medical evaluation for secondary cause of low bone mineral density may be appropriate. FUTURE SCAN RECOMMENDATION: People with diagnosed cases of osteoporosis or at high risk for fracture should have regular bone mineral density tests. For patients eligible for Medicare, routine testing is allowed once every 2 years. The testing frequency can be increased to one year for patients who have rapidly progressing disease, those who are receiving or discontinuing medical therapy to restore bone mass, or have additional risk factors.
== END 2023-04-29 12:52 | disposition home or self-care (01) ==
LOC: HO.MAMMO 12:51
PROVIDERS: PCP Internal Medicine; Visit Provider Internal Medicine Rheumatology
DX: Z13.820 Encounter for screening for osteoporosis (principal); Z78.0 Asymptomatic menopausal state; M06.00 Rheumatoid arthritis without rheumatoid factor, unspecified site
CPT/HCPCS: 77080

== ENCOUNTER 2023-05-03 11:03 | Outpatient (AMB) | payer MEDICARE, OTHER, SELFPAY ==
--- NOTE | 2023-05-03 11:05 | A.OFFVIS_ITS ---
Intake Vital Signs 05/03/23 11:19 Height 5 ft 3 in Weight 125 lb 0.034 oz BMI 22.1 BP 150/90 H Blood Pressure Location Rt brachial Position Sitting Pulse 120 H Pulse Source Pulse Oximeter Temp 97.2 F Temp Source Skin Pulse Oximetry (%) 95 Oxygen Delivery Method Room Air Intake Visit Reasons: Osteoporosis Intake Note: Patient presents to office today to discuss osteoporosis treatment. Make Up Worker Required: No Accompanied by: Self / Same As Patient Allergies estrogens, conjugated [From Premarin] Allergy (Verified 05/03/23 11:20) vaginal bleeding HPI HPI Comments History of Present Illness Details Mrs. Arteaga 82-year-old female normally seen in the office for rhe umatoid arthritis for returns today for management of new onset osteoporosis. She completed her DEXA scan April 29, found to have a lowest T-score of - 2.6. She did have menopause at about age 48, likely surgically induced with a hysterectomy. She remains on ferrous sulfate that she takes once or twice a week because of a history of anemia. She denies prior treatment and currently takes calcium with Vitamin D. She has no significant medical history. However, her risk factors for Osteoporosis includes being postmenopausel and small framed, and takes Ensure supplement for nutrition boost. She also mentioned that most women in her family has osteoporosis but denies family or personal history of hip fracture. She is fairly active with walking and yoga, and denies consumption of alcohol. Patient denies history of eating disorder and other concerns for mal-absorption. She does have Rheumatoid arthritis. She does not have GERD or takes a PPI. [facility] Surgical History History of exploratory laparotomy History of colostomy reversal H/O arthroscopy of left knee H/O: hysterectomy Social History Household Members: Family Housing: House Alcohol intake: never Patient Tobacco Use Status: Never used Tobacco e-Cigarette/Vaping Use: Never Used Review of Systems Const All systems reviewed & are unremarkable except as noted in HPI and below Physical Exam APPEARANCE: Patient in no acute distress EYES no redness, pupils equal and reactive to light, eyelids normal EXTREMITIES: No edema, no calf tenderness, normal peripheral pulses. Vital signs reviewed. Constitutional: Non-toxic appearing. No acute distress. Well-developed, thin framed. HEENT: Normocephalic and atraumatic. External auditory canals without erythema or edema bilaterally. Dry mucous membranes. No pharyngeal erythema or exudates. Skin: Warm and dry. No rashes or lesions noted. Neck: Full and painless range of motion. No cervical lymphadenopathy. Cardio: Regular rate and rhythm. No murmurs, gallops, or rubs. No lower extremity edema. No JVD. Pulmonary: No respiratory distress. No accessory muscle usage. Scattered expiratory wheezing. Genitourinary: No CVA tenderness. Musculoskeletal: Normal range of motion in joints throughout the body. Signs of RA defrormity to fingers. Neuro: Alert and oriented x4. Cranial nerves 2-12 grossly intact. No focal deficits appreciated. Results Reviewed Results Reviewed: 04/29/2023 DEXA SCAN IMPRESSION:1. DIAGNOSIS: Osteoporosis based on the lowest T-score value of -2.6 inthe femoral neck applying World Health Organization criteria.2. 10-YEAR FRACTURE RISK PREDICTION, FRAX: According to the guidelines,FRAX calculation should only be performed on patients in the osteopeniabone density category. 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 DEXA SCAN lowest T-Score = -2.6 and warrants antiresorptive therapy. I think it is reasonable to start her on Alendronate 70 mg QW given she has not known contraindication. It seems more convenient to do the once weekly dosing given the precautions needed for the medication. We discuss that she should take the medicine on an empty stomach as soon as she gets out of bed in the morning and at least 30 minutes before any food, beverage, or other medicines. Food and beverages (eg, mineral water, coffee, tea, or juice) will decrease the amount of alendronate absorbed by the body. I also cautioned her that medicines such as antacids, calcium, or vitamin supplements will also decrease the absorption of alendronate so it is best to take the Alendronate by itself. I will obtain relevant labs before starting therapy to assess her Kidney function, Vitamin D and calcium levels. Otherwise a follow-up to on her RA is recommended in 4 months and at that time we will discuss Osteoporosis further. Patient knows to call the office for concerns and to stop the medication foe side effects she encounters. Orders: Orders Alkaline Phosphatase Bone Today M81.0 - Age-related osteoporosis without current pathological fracture Vitamin D 1,25 dihydroxy Today M81.0 - Age-related osteoporosis without current pathological fracture TSH reflex Free T4 Today M81.0 - Age-related osteoporosis without current pathological fracture Phosphorus Today M81.0 - Age-related osteoporosis without current pathological fracture Comprehensive Met. Panel Today M81.0 - Age-related osteoporosis without current pathological fracture Medications: New alendronate 70 mg PO QWEEK 8 tabs 0RF M81.0 - Age-related osteoporosis without current pathological fracture Coding Level of Care Code Est Pt Level 3 (35273) Diagnoses Age-related osteoporosis without current pathological fracture M81.0
[2023-05-03 11:19] VITALS: BP 150/90; PULSE 120; TEMP 36.2; O2SAT 95; BMI 22.1
== END 2023-05-03 11:47 | disposition home or self-care (01) ==
LOC: HO.RHE 11:03
PROVIDERS: PCP Internal Medicine; Visit Provider Nurse Practitioner Family
DX: M81.0 Age-related osteoporosis without current pathological fracture (principal)
CPT/HCPCS: 99213

== ENCOUNTER → 2023-05-03 11:03 | Outpatient (BNVA) | payer MEDICARE, OTHER, SELFPAY | PROVIDERS: PCP Internal Medicine; Visit Provider Nurse Practitioner Family | DX: M81.0 Age-related osteoporosis without current pathological fracture (principal) | CPT/HCPCS: 36415; 80053; 82652; 84075; 84100; 84443; 85025; 85652; 86140; 99212 ==

== ENCOUNTER 2023-05-03 12:03 | Outpatient (REF) | payer MEDICARE, OTHER, SELFPAY ==
[2023-05-03 13:24] LABS: MANUAL DIFF FLAG NO
[2023-05-03 13:31] LABS: Basophils Percent Auto 0.7 % (0-2); Eosinophils Percent Auto 0.6 % (0-4); Hematocrit 41.3 % (37.0-47.0); Hemoglobin 13.5 g/dl (12.0-16.0); Imm Gran Abs Auto 0.01 X10*3/uL (0.00-0.03); Imm Gran Pct Auto 0.2 % (0.0-0.4); Lymphocytes Absolute Auto 1.3 X10*3/uL (1.2-4.9); Lymphocytes Percent Auto 24.4 % (20-40); Mean Corpuscular HGB Conc 32.7 g/dl (31.0-35.0); Mean Corpuscular Hemoglobin 33.4 pg (27.0-33.0); Mean Corpuscular Volume 102.2 fL (80.0-98.0); Mean Platelet Volume 9.9 fL (9.4-12.3); Monocytes Absolute Auto 0.3 X10*3/uL (0.1-1.2); Monocytes Percent Auto 5.7 % (2-11); Neutrophils Absolute Auto 3.7 x10*3/uL (2.0-8.3); Neutrophils Percent Auto 68.4 % (45-73); Platelet Count 258 X10*3/uL (160-400); Red Blood Count 4.04 X10*6/uL (4.20-5.50); Red Cell Distribution Width 11.7 % (11.0-16.0); White Blood Count 5.4 X10*3/uL (4.8-10.8)
[2023-05-03 14:22] LABS: Erythrocyte Sedimentation Rate 14 MM/HR (0-20)
[2023-05-03 18:15] LABS: Alanine Aminotransferase 8 U/L (0-31); Albumin Level 4.5 g/dL (3.5-5.0); Alkaline Phosphatase 59 U/L (39-117); Anion Gap 14 (12-20); Aspartate Amino Transferase 18 U/L (5-31); Bilirubin Total 0.4 mg/dL (0.0-1.0); Blood Urea Nitrogen 19 mg/dL (9-16); C Reactive Protein 0.19 mg/dL (< or = 0.50); Calcium 10.3 mg/dL (8.4-10.2); Carbon Dioxide 27 mmol/L (22-29); Chloride 105 mmol/L (96-108); Estimated Glomerular Filt Rate > 60; Glucose Random 93 mg/dL (60-115); Phosphorus 3.5 mg/dL (2.7-4.5); Potassium 3.8 mmol/L (3.3-5.1); Sodium 142 mmol/L (135-145)
[2023-05-03 18:21] LABS: TSH reflex Free T4 3.76 uIU/mL (0.32-4.0)
[2023-05-06 21:08] LABS: Alkaline Phosphatase Bone 6.8 mcg/L (see note)
[2023-05-08 11:53] LABS: VITAMIN D (1,25 OH) D3 58 pg/mL; Vit D (1,25-Dihydroxy) Total 58 pg/mL (18-72); Vitamin D (1,25 OH) D2 <8 pg/mL
== END 2023-05-03 12:04 | disposition home or self-care (01) ==
LOC: HO.10HDL 12:03
PROVIDERS: Internal Medicine Rheumatology; Visit Provider Nurse Practitioner Family
DX: Z13.89 Encounter for screening for other disorder (principal)
CPT/HCPCS: 36415; 80053; 82652; 84075; 84100; 84443; 85025; 85652; 86140

== ENCOUNTER 2023-07-18 10:10 | Outpatient (REF) | payer MEDICARE, OTHER, SELFPAY ==
[2023-07-18 11:35] LABS: Alanine Aminotransferase 8 U/L (0-31); Aspartate Amino Transferase 16 U/L (5-31); Estimated Glomerular Filt Rate > 60
== END 2023-07-18 10:11 | disposition home or self-care (01) ==
LOC: HO.LAB 10:10
PROVIDERS: PCP Internal Medicine; Visit Provider Internal Medicine Rheumatology
DX: M06.00 Rheumatoid arthritis without rheumatoid factor, unspecified site (principal); Z79.899 Other long term (current) drug therapy
CPT/HCPCS: 36415; 82565; 84450; 84460

== ENCOUNTER 2024-10-12 10:07 | Outpatient (REF) | payer MEDICARE, OTHER, SELFPAY ==
[2024-10-12 10:17] LABS: MANUAL DIFF FLAG NO
--- OUTSIDE RECORDS SUMMARY | 2024-10-12 10:41 | XMS_ITS | Patient Health Record ---
Author Organization [facility] [place] Address [address] [facility] [place] [address] Care Team Providers Care Department Director Name Role Phone Iris Obrien Unavailable [phone] KristianVazquez Unavailable [phone] Allergies Allergen (clinical drug ingredient) Drug/Non Drug Allergy documented on EMR Reaction Allergy Type Onset Date Status estrogens, conjugated (CUSTODIAL) Premarin lung clots Drug Allergy Active Anesthesia S/I-40 general/spinal Drug Allergy Active Reason For Referral No Information Medications Medication SIG (Take, Route, Fr equency, Duration) Notes Start Date End Date Status Vitamin D PRN Active Leflunomide 20 MG 1 tablet Orally Once a day for 30 day(s) Active Immunizations Vaccine Route Administration Date Status Comme nts COVID-19 Shane & Shane/Elliott Unknown 05/05/2021 Administered 1st 08/21/19 Booster 05/05/2021 Influenza Unknown 02/13/2022 Administered Social History Tobacco Use: Social History Observation Description Date Details (start date - stop date) Never Smoker NA - NA Tobacco use other than smoking: Question Answer Notes Are you an other tobacco user? No Tobacco Control (Standard) Question Answer Notes Tobacco use: Nonsmoker Additional Findings: Tobacco non-user Current no nsmoker AUDIT-C (Standard) Question Answer Notes Did you have a drink containing alcohol in the p ast year? No Points 0 Interpretation Negative Problems Problem Type SNOMED Code ICD Code Onset Dates Problem Status W/U Status Risk Notes Problem Bilateral atherosclerosis of arteries of lower limbs (80595637200917723 ) Atherosclerosis of [place] artery of both lower extremities, with unspecified presence of clinical manifestation (I70.203) Active confirmed Q7(A), Q8(2B), Q9(1B,2 C) Vital Signs Blood pressure diastolic 65 mm Hg 10/03/2024 Height 5 ft 3 in in 10/03/2024 Blood pressure systolic 117 mm Hg 10/03/2024 Weight 125 lbs 10/03/2024 BMI 22.14 kg/m2 10/03/2024 Procedures Procedure Date Ordered Date Performed Result Body Sit e 58545-NZUXKAC NAIL, 6 OR MORE 03/07/2024 N/A 95921-XCYAYJE NAIL, 6 OR MORE 06/06/2024 N/A 71724-LUGDHUP NAIL, 6 OR MORE 10/03/2024 N/A Encounters Encounter Location Date Provider Diagnosis [address] [address] 12/07/2023 Vazquez Townsend Unspecified atherosclerosis of [place] arteries of extremities, bilateral legs I70.203 ; Skin disease L98.9 ; Ingrowing nail L60.0 ; Tinea unguium B35.1 ; Pain in left toe(s) M79.675 ; Pain in right toe(s) M79.674 ; Other hammer toe(s) (acquired), left foot M20.42 ; Other hammer toe(s) (acquired), right foot M20.41 ; Hallux rigidus, left foot M20.22 ; Hallux rigidus, right foot M20.21 ; Rheumatoid arthritis involving multiple sites with positive rheumatoid factor M05.79 and Xerosis cutis L85.[address] [address] 03/07/2024 Iris Obrien Atherosclerosis of [place] artery of both lower extremities, with unspecified presence of clinical manifestation I70.203 ; Tinea unguium B35.1 ; Pain in right toe(s) M79.674 and Pain in left toe(s) M79.[address] [address] 06/06/2024 Iris Obrien Atherosclerosis of [place] artery of both lower extremities, with unspecified presence of clinical manifestation I70.203 ; Tinea unguium B35.1 ; Pain in right toe(s) M79.674 and Pain in left toe(s) M79.[address] [facility] [address] [address] 10/03/2024 Iris Obrien Atherosclerosis of [place] artery of both lower extremities, with unspecified presence of clinical manifestation I70.203 ; Tinea unguium B35.1 ; Pain in right toe(s) M79.674 and Pain in left toe(s) M79.[address] [facility] [address] 01/06/2024 Iris Obrien [facility] [address] 08/07/2024 Iris Obrien Assessments Encounter Date Diagnosis (ICD Code) Assessment Notes Treatment Notes Treatment Clinical Notes Section Notes 12/07/2023 Unspecified atherosclerosis of [place] arteries of extremities, bilateral legs (ICD-10 - I70.203) 03/07/2024 Tinea unguium (ICD-10 - B35.1) 03/07/2024 Atherosclerosis of [place] artery of both lower extremities, with unspecified presence of clinical manifestation (ICD-10 - I70.203) Q7(A), Q8(2B), Q9(1B,2C) 06/06/2024 Tinea unguium (ICD-10 - B35.1) 06/06/2024 Atherosclerosis of [place] artery of both lower extremities, with unspecified presence of clinical manifestation (ICD-10 - I70.203) Q7(A), Q8(2B), Q9(1B,2C) 10/03/2024 Tinea unguium (ICD-10 - B35.1) 10/03/2024 Atherosclerosis of [place] artery of both lower extremities, with unspecified presence of clinical manifestation (ICD-10 - I70.203) Q7(A), Q8(2B), Q9(1B,2C) 06/06/2024 Pain in right toe(s) (ICD-10 - M79.674) 10/03/2024 Pain in right toe(s) (ICD-10 - M79.674) 03/07/2024 Pain in right toe(s) (ICD-10 - M79.674) 12/07/2023 Skin disease (ICD-10 - L98.9) 12/07/2023 Ingrowing nail (ICD-10 - L60.0) 03/07/2024 Pain in left toe(s) (ICD-10 - M79.675) 10/03/2024 Pain in left toe(s) (ICD-10 - M79.675) 06/06/2024 Pain in left toe(s) (ICD-10 - M79.675) 12/07/2023 Tinea unguium (ICD-10 - B35.1) 12/07/2023 Pain in left toe(s) (ICD-10 - M79.675) 12/07/2023 Pain in right toe(s) (ICD-10 - M79.674) 12/07/2023 Other hammer toe(s) (acquired), left foot (ICD-10 - M20.42) 12/07/2023 Other hammer toe(s) (acquired), right foot (ICD-10 - M20.41) 12/07/2023 Hallux rigidus, left foot (ICD-10 - M20.22) 12/07/2023 Hallux rigidus, right foot (ICD-10 - M20.21) 12/07/2023 Rheumatoid arthritis involving multiple sites with positive rheumatoid factor (ICD-10 - M05.79) 12/07/2023 Xerosis cutis (ICD-10 - L85.3) Plan Of Treatment Pending Test Test Name Order Date 45416-LUJCTQH NAIL, 6 OR MORE 03/07/2024 49421-KWDNOQA NAIL, 6 OR MORE 06/06/2024 43734-QRDKWUW NAIL, 6 OR MORE 10/03/2024 70240-EZZA SKIN LESIONS, OVER 4 04/15/20 29226-PGEE SKIN LESIONS, 2 TO 4 07/30/19 71719-MNXZ SKIN LESIONS, 2 TO 4 11/03/19 14173-NZEH SKIN LESIONS, 2 TO 4 07/09/19 21 55875-DBMB SKIN LESIONS, 2 TO 4 10/09/19 21 85907-AJKT SKIN LESIONS, 2 TO 4 01/15/20 44793-Azyc. Subungual Hematoma X4894-XROURPQX DYSTROPHIC NAILS ANY # N8783-HIPPXJDQ DYSTROPHIC NAILS ANY # 80472-KQILJEFN OF HEMATOMA/FLUID 023 Next Appt Details Provider Name:Iris alexis, 01/03/2025 03:30:00 PM, [address] [facility], [place], [address], Insurance Providers Payer Name Payer Address Payer Phone Subscriber Number Group Number Insured Name Patient Relationship to Insured Coverage Start Date Coverage End Date Medicare National Govt [facility] [address] [place] [address] [id number] Jenni Cui Self - patient is the insured [employer] [facility] [address] [place] [address] [id number] Jenni Cui Self - patient is the insured Medical (General) History Medical History History ICD Code rheumatoid arthritis osteoarthritis Anemia Back pain basal cell carcinoma Cataracts Diverticulosis Osteoporosis blood clots in lungs Measles Mumps Chicken pox Transfusions 2000 Surgical History Surgery Date(Month/Year) hysterectomy 1988 arthroscopic knee surgery 2001 intestinal surgery, repair 2018 mohs surgery 03/26/21
[2024-10-12 11:20] LABS: Basophils Percent Auto 0.5 % (0-2); Eosinophils Absolute Auto 0.1 X10*3/uL (0.0-0.4); Hematocrit 42.9 % (37.0-47.0); Hemoglobin 13.7 g/dl (12.0-16.0); Imm Gran Abs Auto 0.02 X10*3/uL (0.00-0.03); Imm Gran Pct Auto 0.3 % (0.0-0.4); Lymphocytes Absolute Auto 2.1 X10*3/uL (1.2-4.9); Lymphocytes Percent Auto 34.4 % (20-40); Mean Corpuscular HGB Conc 31.9 g/dl (31.0-35.0); Mean Corpuscular Hemoglobin 33.1 pg (27.0-33.0); Mean Corpuscular Volume 103.6 fL (80.0-98.0); Monocytes Absolute Auto 0.3 X10*3/uL (0.1-1.2); Neutrophils Absolute Auto 3.6 x10*3/uL (2.0-8.3); Neutrophils Percent Auto 58.8 % (45-73); Platelet Count 279 X10*3/uL (160-400); Red Blood Count 4.14 X10*6/uL (4.20-5.50); Red Cell Distribution Width 11.9 % (11.0-16.0); White Blood Count 6.2 X10*3/uL (4.8-10.8)
[2024-10-12 12:05] LABS: Erythrocyte Sedimentation Rate 10 MM/HR (0-20)
[2024-10-12 12:41] LABS: Alanine Aminotransferase 11 U/L (0-31); Albumin Level 4.7 g/dL (3.5-5.0); Alkaline Phosphatase 50 U/L (39-117); Anion Gap 14 (12-20); Aspartate Amino Transferase 22 U/L (5-31); Bilirubin Total 0.5 mg/dL (0.0-1.0); Blood Urea Nitrogen 17 mg/dL (9-16); C Reactive Protein 0.18 mg/dL (< or = 0.50); Calcium 10.3 mg/dL (8.4-10.2); Carbon Dioxide 27 mmol/L (22-29); Chloride 106 mmol/L (96-108); Estimated Glomerular Filt Rate > 60; Glucose Random 85 mg/dL (60-115); Potassium 3.8 mmol/L (3.3-5.1); Sodium 143 mmol/L (135-145); Total Protein 7.5 g/dL (6.5-8.0)
== END 2024-10-12 10:08 | disposition home or self-care (01) ==
LOC: HO.LAB 10:07
PROVIDERS: Visit Provider Student in an Organized Health Care Education/Training Program
DX: M06.00 Rheumatoid arthritis without rheumatoid factor, unspecified site (principal)
CPT/HCPCS: 36415; 80053; 85025; 85652; 86140

== ENCOUNTER 2025-01-22 11:30 | Outpatient (REF) | payer MEDICARE, OTHER, SELFPAY ==
--- OUTSIDE RECORDS SUMMARY | 2024-03-09 07:00 | XMS_ITS ---
Author Organization [facility] Address [address] [place] [address] Care Team Providers Care Nursing Home Assistant Name Role Phone Iris Obrien Unavailable [phone] Lugo Encounters Encounter Location Date Provider Diagnosis [facility] [address] [place] [address] 03/09/2024 Iris Obrien Plan Of Treatment Next Appt Details Provider Name:Iris alexis, 04/10/2025 09:30:00 AM, [address] [place], [address], Progress Notes * KALA Jenni CDOB:1940 (84 yo F)Acc No.[id number]:03/09/2024 Progress Note Patient: Jenni OH Provider: Myrtle Obrien DPM :1940 A ge:83 Y S ex:Female Date:03/09/2024 Address:[address] [place] [address] [place] Subjective: * Chief Complaints: * 1 . [...] Obrien DPM Date: 1 Generated for Printi ng/Faelierg/eTransmitting on: 0 01/22/2025 02:01 PM EDT
--- OUTSIDE RECORDS SUMMARY | 2024-03-21 10:00 | XMS_ITS ---
Author Organization [facility] Address [address] [place] [address] Care Team Providers Care Mysql Database Developer Name Role Phone Camille Iris Unavailable [phone] Encounters Encounter Location Date Provider Diagnosis [address] [address] 03/21/2024 Iris Obrien Plan Of Treatment Next Appt Details Provider Name:Iris alexis, 04/10/2025 09:30:00 AM, [address] [place], [address], Progress Notes * Jenni ARMENDARIZ CDOB:1940 (84 yo F)Acc No.[id number]:03/21/2024 Progress Note Patient: Jenni OH Provider: Myrtle Obrien DPM :1940 A ge:83 Y S ex:Female Date:03/21/2024 Address: [id number] Subjective: * Chief Complaints: * * Medical History: Objective: * Vitals: Assessment: Plan: * Treatment: * Images: * The named appointment provid er may or may not be the originator of this progress note, and it is not deemed complete until electronically signed by the appointment provider. Sign off status: Pending * Provider: Myrtle Obrien DPM Date: 05/21/2023 Generated for Printi ng/Faelierg/eTransmitting on: 0 01/22/2025 02:01 PM EDT
[2025-01-22 11:44] LABS: MANUAL DIFF FLAG NO
[2025-01-22 11:57] LABS: Hematocrit 40.9 % (37.0-47.0); Hemoglobin 13.7 g/dl (12.0-16.0); Imm Gran Abs Auto 0.02 X10*3/uL (0.00-0.03); Imm Gran Pct Auto 0.3 % (0.0-0.4); Lymphocytes Absolute Auto 2.1 X10*3/uL (1.2-4.9); Mean Corpuscular HGB Conc 33.5 g/dl (31.0-35.0); Mean Corpuscular Hemoglobin 34.0 pg (27.0-33.0); Mean Corpuscular Volume 101.5 fL (80.0-98.0); NRBC Abs Auto 0.000 X10*3/uL (0.0-0.012); NRBC Pct Auto 0.0 /100WBC (0.0-0.2); Platelet Count 264 X10*3/uL (160-400); Red Blood Count 4.03 X10*6/uL (4.20-5.50); White Blood Count 6.2 X10*3/uL (4.8-10.8)
[2025-01-22 12:27] LABS: Alanine Aminotransferase 17 U/L (0-31); Albumin Level 4.6 g/dL (3.5-5.0); Alkaline Phosphatase 54 U/L (39-117); Anion Gap 12 (12-20); Aspartate Amino Transferase 25 U/L (5-31); Blood Urea Nitrogen 20 mg/dL (9-16); Calcium 9.9 mg/dL (8.4-10.2); Carbon Dioxide 28 mmol/L (22-29); Chloride 106 mmol/L (96-108); Estimated Glomerular Filt Rate > 60; Potassium 4.2 mmol/L (3.3-5.1); Sodium 142 mmol/L (135-145); Total Protein 7.5 g/dL (6.5-8.0)
--- OUTSIDE RECORDS SUMMARY | 2025-01-22 14:01 | XMS_ITS | Clinical Summary ---
Author Organization [facility] Address [address] [place] [address] Phone Care Team Providers Care Gas Or Water Meter Installer Name Role Phone Randy Chi MD Primary Care Provider Allergies Active Allergy Reactions Criticality Noted Date Comments Conjugated Estrogens 02/23/2021 Blood clot in lungs Medications leflunomide (ARAVA) 10 MG tablet Take 10 mg by mouth daily. Active Active Problems Problem Noted Date Diagnosed Date Basal cell carcinoma (BCC) of nasal tip 02/24/20 21 Basal cell carcinoma (BCC) of right ala nasi 03/2021 Family History Medical History Relation Comments Heart disease Father Relation Status Comments Father Mother Social History Tobacco Use Types Packs/Day Years Used Date Smoking Tobacco: Never Smokeless Tobacco: Never Alcohol Use Standard Drinks/Week Comments Never 0 (1 standard drink = 0.6 oz pur e alcohol) Education Answer Date Recorded Are you interested in more education? Not on luis alfredo e 09/11/2022 Are you concerned about learning? Not on file 09/11/2022 No 09/11/2022 No 09/11/2022 Digital Access Answer Date Recorded No 10/12/2022 No 10/12/2022 Reliable internet access at home? Not on file 10/12/2022 Device with a working camera? Not on file Comments Unknown Sex and Gender Information Value Date Recorded Sex Assigned at Not on file Legal Sex Female 4:01 PM EDT Gender Identity Not on file Sexual Orientation Not on file Last Filed Vital Signs Vital Sign Reading Time Taken Comments Blood Pressure 122/76 02/23/2021 3:03 PM EDT Pulse 92 02/23/2021 3:03 PM EDT Temperature - - Respiratory Rate - - Oxygen Saturation - - Inhaled Oxygen Concentration - - Weight 58.1 kg (128 lb) 02/23/2021 3:03 PM EDT Height 160 cm (5' 3 ) 02/23/2021 3:03 PM EDT Body Mass Index 22.67 02/23/2021 3:03 PM EDT Plan of Treatment Health Maintenance Due Date Last Done Comments Adult Td,Tdap Booster 1940 DEPRESSION SCREENING 1950 ZOSTER VACCINES (1 of 2) 1957 OSTEOPOROSIS SCREENING INITI AL (ONE-TIME) 07/21/2003 RSV VACCINE (1 - 1-dose 75+ series) 2013 PNEUMOCOCCAL VACCINES (50+ y ears) (2 of 2 - PPSV23) 07/27/2018 06/01/2018 COVID-19 VACCINE (2 - Jansse n risk series) 09/17/2020 08/20/2020 INFLUENZA VACCINE (#1) 2024 HEPATITIS A VACCINES Aged Out No long er eligible based on patient's age to complete this topic HIB VACCINES Aged Out No longer eligi ble based on patient's age to complete this topic MENINGOCOCCAL VACCINES (ACWY) Aged Out No longer eligible based on patient's age to complete this topic MENINGOCOCCAL VACCINES (B) Aged Out N o longer eligible based on patient's age to complete this topic Medical Devices Not on file Insurance MEDICARE PART A & B [facility] MEDICARE PART A & B [facility] MEDICARE SU[place] [address] MEDICARE PART A & B [facility] [place] [id number] MEDICARE PART A & B [facility] MEDICARE SUPPLEMENT Member Subscriber Plan / Payer [facility] Name:Jenni Chapman Relation to Subscriber:Self Name:Jenni Chapman Payer ID:[id number] (NAIC) Type:Indemnity Address: [address] [place] [address] [place] [address] [facility] MED[facility] PART A & B [facility] MEDICARE SUPPLEMENT MEDICARE PART A & [facility] [place] [id number] MEDICARE PART A & B [employer] [place] [address] MEDICARE PART A & B [employer] [place] [address] MEDICARE PART A & B [facility] MEDICARE SUPPLEMENT Care Teams Gas Or Water Meter Installer Relationship Specialty Start Date End Date Randy Chi MD [address] [place] [address] Dr BROOKE [place], [place]A [address] PCP - General Internal Medicine 02/16/21 Additional Source Comments The information contained in this document represents components of the legal health record. It is not the complete legal health record.[facility]
--- OUTSIDE RECORDS SUMMARY | 2025-01-22 14:02 | XMS_ITS | Encounter Summary ---
Author Organization [facility] Address [address] [place] [phone] Phone Care Team Providers Care Flight Control Manager Name Role Phone Randy Chi MD Primary Care Provider Encounter Details Date Type Department Care Team (Late st Contact Info) Description 03/31/2021 Procedure Pass OR Admitting Dept - Virtual Department [address] [place] [address] Social History Tobacco Use Types Packs/Day Years Used Date Smoking Tobacco: Never Smokeless Tobacco: Never Alcohol Use Standard Drinks/Week Comments Never 0 (1 standard drink = 0.6 oz pur e alcohol) Comments Unknown Sex and Gender Information Value Date Recorded Sex Assigned at Not on file Legal Sex Female 4:01 PM EDT Gender Identity Not on file Sexual Orientation Not on file documented as of this encounter Plan of Treatment Not on file documented as of this encounter Visit Diagnoses Not on filedocumented in this encounter Care Teams Flight Control Manager Relationship Specialty Start Date End Date Randy Chi MD [address] [place] [address] [place] [address] PCP - General Internal Medicine 02/16/21 documented as of this encounter Additional Source Comments The information contained in this document represents components of the legal health record. It is not the complete legal health record.[facility]
--- OUTSIDE RECORDS SUMMARY | 2025-01-22 14:02 | XMS_ITS | Patient Health Record ---
Author Organization [facility] Miah raul Donaldson Address [address] [place] [address] Care Team Providers Care Rewinder Name Role Phone Iris Obrien Unavailable [phone] Allergies Allergen (clinical drug ingredient) Drug/Non Drug Allergy documented on EMR Reaction Allergy Type Onset Date Status estrogens, conjugated ([facility]) Premarin lung clots Drug Allergy Active Anesthesia S/I-40 general/spinal Drug Allergy Active Reason For Referral No Information Medications Medication SIG (Take, Route, Fr equency, Duration) Notes Start Date End Date Status Leflunomide 20 MG 1 tablet Orally Once a day; Duration: 30 day(s) Active Vitamin D PRN Active Immunizations Vaccine Route Administration Date Status Comme nts Influenza Unknown 02/13/2022 Administered Influenza Unknown 02/15/2024 Administered COVID-19 Shane & Shane/Elliott Unknown 05/05/2021 Administered 1st 08/21/19 Booster 05/05/2021 Social History Tobacco Use: Social History Observation [...] Bilateral atherosclerosis of arteries of lower limbs (disorder) ([id number] ) Atherosclerosis of [place] artery of both lower extremities, with unspecified presence of clinical manifestation (I70.203) Active confirmed Q7(A), Q8(2B), Q9(1B,2 C) Vital Signs Blood pressure diastolic 65 mm Hg 01/03/2025 Height 5 ft 3 in in 01/03/2025 Blood pressure systolic 120 mm Hg 01/03/2025 Weight 125 lbs 01/03/2025 BMI 22.14 kg/m2 01/03/2025 Procedures Procedure Date Ordered Date Performed Result Body Sit e 77789-UDRFRVA NAIL, 6 OR MORE 03/07/2024 N/A 56656-HWSZOAN NAIL, 6 OR MORE 06/06/2024 N/A 14750-SKJXYDR NAIL, 6 OR MORE 10/03/2024 N/A 35842-MXSWVQN NAIL, 6 OR MORE 01/03/2025 N/A Encounters Encounter Location Date Provider Diagnosis [address] [address] 03/07/2024 Iris Obrien Atherosclerosis of [place] artery of both lower extremities, with unspecified presence of clinical manifestation I70.203 ; Tinea unguium B35.1 ; Pain in right toe(s) M79.674 and Pain in left toe(s) M79.[address] [address] 06/06/2024 Iris Obrien Atherosclerosis of [place] artery of both lower extremities, with unspecified presence of clinical manifestation I70.203 ; Tinea unguium B35.1 ; Pain in right toe(s) M79.674 and Pain in left toe(s) M79.[address] [address] 10/03/2024 Iris Obrien Atherosclerosis of [place] artery of both lower extremities, with unspecified presence of clinical manifestation I70.203 ; Tinea unguium B35.1 ; Pain in right toe(s) M79.674 and Pain in left toe(s) M79.[address] [address] 01/03/2025 Iris Obrien Atherosclerosis of [place] artery of both lower extremities, with unspecified presence of clinical manifestation I70.203 ; Tinea unguium B35.1 ; Pain in right toe(s) M79.674 and Pain in left toe(s) M79.675 [facility] [address] [place] [address] 08/07/2024 rIis Obrien Assessments Encounter Date Diagnosis (ICD Code) Assessment Notes Treatment Notes Treatment Clinical Notes Section Notes 03/07/2024 Tinea unguium (ICD-10 - B35.1) 03/07/2024 Atherosclerosis of [place] artery of both lower extremities, with unspecified presence of clinical manifestation (ICD-10 - I70.203) Q7(A), Q8(2B), Q9(1B,2C) 06/06/2024 Tinea unguium (ICD-10 - B35.1) 06/06/2024 Atherosclerosis of [place] artery of both lower extremities, with unspecified presence of clinical manifestation (ICD-10 - I70.203) Q7(A), Q8(2B), Q9(1B,2C) 10/03/2024 Tinea unguium (ICD-10 - B35.1) 10/03/2024 Atherosclerosis of [place] artery of both lower extremities, with unspecified presence of clinical manifestation (ICD-10 - I70.203) Q7(A), Q8(2B), Q9(1B,2C) 01/03/2025 Tinea unguium (ICD-10 - B35.1) 01/03/2025 Atherosclerosis of [place] artery of both lower extremities, with unspecified presence of clinical manifestation (ICD-10 - I70.203) Q7(A), Q8(2B), Q9(1B,2C) 01/03/2025 Pain in right toe(s) (ICD-10 - M79.674) 06/06/2024 Pain in right toe(s) (ICD-10 - M79.674) 10/03/2024 Pain in right toe(s) (ICD-10 - M79.674) 03/07/2024 Pain in right toe(s) (ICD-10 - M79.674) 03/07/2024 Pain in left toe(s) (ICD-10 - M79.675) 01/03/2025 Pain in left toe(s) (ICD-10 - M79.675) 10/03/2024 Pain in left toe(s) (ICD-10 - M79.675) 06/06/2024 Pain in left toe(s) (ICD-10 - M79.675) Plan Of Treatment Pending Test Test Name Order Date 00072-GTMAZHX NAIL, 6 OR MORE 03/07/2024 69699-KMBOTYJ NAIL, 6 OR MORE 06/06/2024 81106-WLXJFOO NAIL, 6 OR MORE 10/03/2024 44634-XBTGKNL NAIL, 6 OR MORE 01/03/2025 22444-XZEJ SKIN LESIONS, OVER 4 04/15/20 59167-GVEE SKIN LESIONS, 2 TO 4 07/30/19 64471-KHYF SKIN LESIONS, 2 TO 4 11/03/19 97225-SUVM SKIN LESIONS, 2 TO 4 07/09/19 59310-CWZO SKIN LESIONS, 2 TO 4 10/09/19 96558-FRLR SKIN LESIONS, 2 TO 4 01/15/20 50208-Ropy. Subungual Hematoma 4 Y1590-PIDPNMUC DYSTROPHIC NAILS ANY # Q6970-FALKGXGB DYSTROPHIC NAILS ANY # 44097-JQHKKQGD OF HEMATOMA/FLUID 023 Next Appt Details Provider Name:Iris Coronel vanesa, 04/10/2025 09:30:00 AM, [address] [facility], [place], [address], Insurance Providers Payer Name Payer Address Payer Phone Subscriber Number Group Number Insured Name Patient Relationship to Insured Coverage Start Date Coverage End Date Medicare National Govt Svcs Inc [address] [facility] [address] [id number] Jenni Cui Self - patient is the insured [facility] ([facility] [address] [place] [address] [id number] Jenni Cui Self - patient is the insured Medical (General) History Medical History History ICD Code rheumatoid arthritis osteoarthritis Anemia Back pain basal cell carcinoma Cataracts Diverticulosis Osteoporosis blood clots in lungs Measles Mumps Chicken pox Transfusions 2000 Surgical History Surgery Date(Month/Year) hysterectomy 1987 arthroscopic knee surgery 2001 intestinal surgery, repair 2018 [facility] surgery 03/26/21
== END 2025-01-22 11:31 | disposition home or self-care (01) ==
LOC: HO.LAB 11:30
PROVIDERS: Visit Provider Student in an Organized Health Care Education/Training Program
DX: E55.9 Vitamin D deficiency, unspecified (principal); Z79.899 Other long term (current) drug therapy
CPT/HCPCS: 36415; 80053; 82306; 85025; 85652; 86140

== ENCOUNTER 2025-01-29 09:12 | Outpatient (AMB) | payer MEDICARE, OTHER, SELFPAY ==
--- OUTSIDE RECORDS SUMMARY | 2024-03-09 07:00 | XMS_ITS ---
Author Organization [facility] Address [address] [place] [address] Care Team Providers Care Airborne Operations Name Role Phone Iris Obrien Unavailable [phone] Lugo Encounters Encounter Location Date Provider Diagnosis [facility] [address] [place] [address] 03/09/2024 Iris Obrien Plan Of Treatment Next Appt Details Provider Name:Iris alexis, 04/10/2025 09:30:00 AM, [address] [place], [address], Progress Notes * KALA Jenni CDOB:1940 (84 yo F)Acc No.[id number]:03/09/2024 Progress Note Patient: Jenni [place] Provider: Myrtle Obrien DPM :1940 A ge:83 Y S ex:Female Date:03/09/2024 Address:[address] [place] [address] [place] Subjective: * Chief Complaints: * [address] Lugo. * Medical History: Objective: * Vitals: Assessment: Plan: * Treatment: * Images: * The named appointment provid er may or may not be the originator of this progress note, and it is not deemed complete until electronically signed by the appointment provider. Sign off status: Pending * Provider: Myrtle Obrien DPM Date: 1 Generated for Printi ng/Faxing/eTransmitting on: 0 01/29/2025 11:31 AM EDT
--- OUTSIDE RECORDS SUMMARY | 2024-03-21 10:00 | XMS_ITS ---
Author Organization [facility] Address [address] [place] [address] Care Team Providers Care Cable Television Program Director Name Role Phone Camille Iris Unavailable [phone] Encounters Encounter Location Date Provider Diagnosis [address] [address] 03/21/2024 Iris Obrien Plan Of Treatment Next Appt Details Provider Name:Iris alexis, 04/10/2025 09:30:00 AM, [address] [place], [address], Progress Notes * Jenni ARMENDARIZ CDOB:1940 (84 yo F)Acc No.[id number]:03/21/2024 Progress Note Patient: Jenni OH Provider: Myrtle Obrien DPM :1940 A ge:83 Y S ex:Female Date:03/21/2024 Address: [place] Subjective: * Chief Complaints: * * Medical History: Objective: * Vitals: Assessment: Plan: * Treatment: * Images: * The named appointment provid er may or may not be the originator of this progress note, and it is not deemed complete until electronically signed by the appointment provider. Sign off status: Pending * Provider: Myrtle Obrien DPM Date: 05/21/2023 Generated for Printi ng/Faxing/eTransmitting on: 0 01/29/2025 11:31 AM EDT
--- NOTE | 2025-01-29 09:19 | A.OFFVIS_ITS ---
Vital Signs 01/29/25 09:28 Height 5 ft 3 in Weight 137 lb 9.095 oz BMI 24.4 BP 142/90 H Blood Pressure Location Rt brachial Position Sitting Pulse 98 Pulse Source Pulse Oximeter Pulse Oximetry (%) 98 Oxygen Delivery Method Room Air Intake Visit Reasons: Osteoporosis Intake Note: Patient presents for Osteoporosis follow up. Allergies estrogens, conjugated (From Premarin) Allergy (Verified 01/29/25 09:26) vaginal bleeding Medication List - Last Reconciled 01/29/25 by Heather Varghese MD ascorbate calcium (vitamin C) 500 mg PO .every other day cholecalciferol (vitamin D3) 25 mcg PO DAILY ferrous sulfate 325 mg PO .once a week food supplemt, lactose-reduced (Ensure oral liquid) ea PO PRN leflunomide 10 mg PO DAILY HPI Comments Details: Patient is an 84-year-old female with polyarticular osteoarthritis, osteoporosis and seronegative rheumatoid arthritis here today for follow up Interval History: Patient last seen 05/03/23 with Kaye Castle - On leflunomide 10mg daily - DEXA showed T score -2.6, started on alendronate - No RA flares Today - On leflunomide 10mg daily, alendronate 70mg weekly - Self discontinued alendronate due to GI upset - No falls or fractures - No flares - Doing chair yoga and doing well Rheumatologic History: RA 2014 -Leflunomide started, methotrexate started 07/2015 Methotrexate 4 tabs weekly stopped and Leflunomide 20 mg lowered to 10mg. Shortly after lowering Leflunomide increased back up to 20 mg. Also on Leucovorin for MCV of 108. 05/2016- Off Methotrexate and Leflunomide with return of joint pain and swelling, restarted on leflunomide 20 mg daily. Leflunomide dose decreased to 10mg January 2022. Osteoporosis - Risk factors: postmenopausel and small framed, early menopause 2/2 EMMA BSO at 48, and family hx osteoporosis Current Rheumatology Medication(s): Leflunomide 10mg daily Alendronate 70mg weekly (not taking) PFSH Surgical History History of exploratory laparotomy History of colostomy reversal H/O arthroscopy of left knee H/O: hysterectomy Social History Household Members: Family Housing: House 75 years or older and lives alone: No Alcohol intake: never Patient Tobacco Use Status: Never used Tobacco e-Cigarette/Vaping Use: Never Used Review of Systems Const Details: Review of Systems Constitutional: Denies fever, chills, weight loss ENT: Denies vision changes, eye pain or eye redness, dental caries, dry mouth GI: Denies nausea, vomiting, diarrhea, abdominal pain, change in BM Pulm: Denies SOB, BR[place], hemoptysis, wheezing Cards: Denies chest pain, palpitations Skin: Denies Raynaud's, rash, nail changes, photosensitivity, APPLICATION TESTER: Denies headaches, weakness, paresthesias, recurrent falls MSK: as per HPI All other systems reviewed and are unremarkable except noted above Physical Exam Exam Exam: Vital signs reviewed Physical Examination CONSTITUITIONAL Patient alert and cooperative. Well appearing and in no apparent painful distress MSK Hands * Right Hand: Able to make a fist. No swelling or tenderness to palpation of the MCPs, PIPs or DIPs. 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 No swelling or tenderness to palpation of the MCPs, PIPs or DIPs. 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 No swelling or TTP * Left Wrist: Full ROM to flexion and extension. No swelling or TTP Elbows * Right Elbow: Full ROM. No swelling or TTP. No TTP of the medial epicondyle. No TTP of the lateral epicondyle * Left Elbow: Decreased ROM to extension. No swelling or TTP. No TTP of the medial epicondyle. No TTP of the lateral epicondyle Shoulders * Right shoulder: Full ROM. No swelling noted. No TTP of the AC joint. No TTP of the subacromial bursa. No TTP of the posterior shoulder * Left shoulder: Full ROM. No swelling noted. No TTP of the AC joint. No TTP of the subacromial bursa. No TTP of the posterior shoulder Knees * Right knee: Full ROM. No swelling noted. No TTP of the knee joint line. No TTP of pes anserine bursa * Left knee: Full ROM. No swelling noted. No TTP of the knee joint line. No TTP of pes anserine bursa. Ankles * Right ankle: Good ankle dorsiflexion and plantar flexion. No swelling. No TTP of the ankle joint * Left ankle: Good ankle dorsiflexion and plantar flexion. No swelling. No TTP of the ankle joint Feet * Right foot: Negative squeeze test * Left foot: Negative squeeze test Tender points? * No tenderness to palpation of the bilateral trapezius, supraspinatus, anterior costochondral junctions, bilateral suboccipital muscle insertions SKIN Likely previous skin cancer biopsy site on her nose Results Reviewed Results Reviewed: Laboratory Tests 01/22/25 11:43 WBC 6.2 RBC 4.03 L Hgb 13.7 Hct 40.9 Plt Count 264 ESR 12 Sodium 142 Potassium 4.2 Chloride 106 Carbon Dioxide 28 BUN 20 H Creatinine 0.83 Calcium 9.9 AST 25 ALT 17 C-Reactive Protein 0.20 25-OH Vitamin D Total 47.3 DEXA 04/2023 FINDINGS: LEFT FEMUR, NECK: Current: BMD 0.671 g/cm2, Z-score -0.1, T-score -2.6, osteoporosis. Prior: BMD 0.602 g/cm2. Baseline: BMD 0.688 g/cm2. LEFT FEMUR, TOTAL: Current: BMD 0.687 g/cm2, Z-score -0.1, T-score -2.5, osteoporosis, 2.2% increase from previous, 9.4% decrease from baseline (<5% change is not significant). Prior: BMD 0.672 g/cm2. Baseline: BMD 0.758 g/cm2. AP SPINE L1-L4: Current: BMD 1.075 g/cm2, Z-score 1.3, T-score -0.9, normal, 4.2% decrease from previous, 0.1% decrease from baseline (<5% change is not significant). Prior: BMD 1.122 g/cm2. Baseline: BMD 1.076 g/cm2. Assessment & Plan Assessment & Plan (1) Seronegative rheumatoid arthritis: Comment: 2014-Leflunomide started, methotrexate started. 07/2015 Methotrexate 4 tabs weekly stopped and Leflunomide 20 mg lowered to 10mg. Shortly after lowering Leflunomide increased back up to 20 mg. Also on Leucovorin for MCV of 108. 05/2016- Off Methotrexate and Leflunomide with return of joint pain and swelling, restarted on leflunomide 20 mg daily. Leflunomide dose decreased to 10mg January 2022. Code(s): M06.00 - Rheumatoid arthritis without rheumatoid factor, unspecified site Category: Medical Plan: #Seronegative RA Patient is an 84 year old female with seronegative deforming RA here today for follow up Currently in remission Stable Boutonierre's deformities Plan - Leflunomide 10mg daily - Requesting referral to another Deputy Chief Executive due to the distance of the new practice - RTC 6 months - Labs before visit: CBC, CMP, ESR, CRP (2) Osteoporosis: Comment: DEXA 04/2023: AP Spine -0.9, Left femur neck -2.6, Left femur total -2.5 Alendronate 04/2023 - 05/2023. GI upset Code(s): M81.0 - Age-related osteoporosis without current pathological fracture Category: Medical Qualifiers: Osteoporosis type: age-related Presence of current pathological fracture: without current pathological fracture Qualified Code(s): M81.0 - Age- related osteoporosis without current pathological fracture Plan: #Osteoporosis Patient with osteoporosis, self discontinued alendronate due to GI side effects Vit D is good I had a discussion with patient that she should be on bone strengthening agents. We discussed Prolia versus zoledronic acid including wrists and benefits as well as side effects. Patient would like to think about it as she is really wary of medication Plan - DEXA 04/2025 - Considering Prolia vs IV Reclast (3) Encounter for monitoring leflunomide therapy: Code(s): Z51.81 - Encounter for therapeutic drug level monitoring; Z79.69 - MCFP (current) use of other immunomodulators and immunosuppressants Plan: #Long-term leflunomide Discussed with patient the benefits and risks of leflunomide for managing the rheumatic condition Benefits include: - Reduced pain, maintenance of remission and reduction of flares Risks include: - GI upset especially diarrhea, skin rash, cytopenias, hepatotoxicity, weight loss, neuropathy Leflunomide is highly teratogenic. Has a very long half-life. Needs cholestyramine washout if there is desire for Monitoring: CBC, BMP, LFTs, hepatitis B and C serologies Plan This is my first visit with this patient. I spent 40 minutes reviewing the record and labs, taking a history, examining the patient, discussing the treatment plan including options for osteoporosis, ordering diagnostic work up and documenting in the medical record Orders: Orders Complete Blood Count Auto Diff 6 Months Z79.89 - Other chcf (current) drug therapy C Reactive Protein 6 Months Z79.89 - Other technician terminal and repeater (current) drug therapy Vitamin D 25-OH Total 6 Months Z.89 - Other technician terminal and repeater (current) drug therapy Comprehensive Met. Panel 6 Months Z89 - Other technician terminal and repeater (current) drug therapy Erythrocyte Sedimentation Rate 6 Months Z79.89 - Other technician terminal and repeater (current) drug therapy XR DEXA axial skeleton 05/14/25 M81.0 - Age-related osteoporosis without current pathological fracture Coding Level of Care Code Est Pt Level 5 (66793) Complex EM visit Add On G2211 Diagnoses Seronegative rheumatoid arthritis M06.00 Age-related osteoporosis without current pathological fracture M81.0 Osteoporosis type: age-related Presence of current pathological fracture: without current pathological fracture Encounter for monitoring leflunomide therapy Z51.81; Z79.69
[2025-01-29 09:28] VITALS: BP 142/90; PULSE 98; O2SAT 98; BMI 24.4
--- OUTSIDE RECORDS SUMMARY | 2025-01-29 11:31 | XMS_ITS | Clinical Summary ---
Author Organization [facility] Address [address] [facility] [address] [place] [address] Phone Care Team Providers Care Wall To Wall Carpet Installer Name Role Phone Randy Chi MD [...] file Insurance MEDICARE PART A & B [facility] SUPPLEMENT MEDICARE PART A & B [facility] MEDIC[place] [address] MEDICARE PART A & B [facility] [place] [address] MEDICARE PART A & B [facility] [place] [place] [phone] [facility] [facility] MEDICARE PART A & B [facility] MEDICARE SUPPLEMENT MEDICARE PART A & B [facility] [employer]T[facility]ION [place] [address] MEDICARE PART A & B [employer] [place] [address] MEDICARE PART A & B [employer] [place] [address] MEDICARE PART A & B [facility] EX[facility]ION MEDICARE SUPPLEMENT Care Teams Wall To Wall Carpet Installer Relationship Specialty Start Date End Date Randy Chi MD [address] [place] [address] Dr BROOKE [place], [place] [address] PCP - General Internal Medicine 02/16/21 Additional Source Comments The information contained in this document represents components of the legal health record. It is not the complete legal health record.[facility]
--- OUTSIDE RECORDS SUMMARY | 2025-01-29 11:32 | XMS_ITS | Encounter Summary ---
Author Organization [facility] Address [address] [place] [address] Phone Care Team Providers Care Dormitory Maid Name Role Phone Randy Chi MD Primary Care Provider Encounter Details Date Type Department Care Team (Late st Contact Info) Description 03/31/2021 Procedure Pass OR Admitting Dept - Virtual Department [address] [place] [address] Social History Tobacco Use Types Packs/Day Years [...] on filedocumented in this encounter Care Teams Dormitory Maid Relationship Specialty Start Date End Date Randy Chi MD [address] [place] [address] [place] [address] PCP - General Internal Medicine 02/16/21 documented as of this encounter Additional Source Comments The information contained in this document represents components of the legal health record. It is not the complete legal health record.[facility]
--- OUTSIDE RECORDS SUMMARY | 2025-01-29 11:32 | XMS_ITS | Patient Health Record ---
Author Organization [facility] Miah raul Donaldson Address [address] [facility] [place] [address] Care Team Providers Care Credit Relationship Manager Name Role Phone Iris Obrien Unavailable [phone] Allergies Allergen (clinical drug ingredient) Drug/Non Drug Allergy documented on EMR Reaction Allergy Type Onset Date Status estrogens, conjugated (LONG TERM) Premarin lung clots Drug Allergy Active Anesthesia [...] atherosclerosis of arteries of lower limbs (disorder) ([id number] ) Atherosclerosis of [place] artery of both lower extremities, with unspecified presence of clinical manifestation (I70.203) Active confirmed Q7(A), Q8(2B), Q9(1B,2 C) Vital Signs Blood pressure diastolic 65 mm Hg 01/03/2025 Height 5 ft 3 in in 01/03/2025 Blood pressure systolic 120 mm Hg 01/03/2025 Weight 125 lbs 01/03/2025 BMI 22.14 kg/m2 01/03/2025 Procedures Procedure Date Ordered Date Performed Result Body Sit e 76859-WFYFQLO NAIL, 6 OR MORE 03/07/2024 N/A 66525-JBOTTLF NAIL, 6 OR MORE 06/06/2024 N/A 26352-PNYJRLF NAIL, 6 OR MORE 10/03/2024 N/A 90845-UAEEAZF NAIL, 6 OR MORE 01/03/2025 N/A Encounters Encounter Location Date Provider Diagnosis [address] [address] 03/07/2024 Iris Obrien Atherosclerosis of [place] artery of both lower extremities, with unspecified presence of clinical manifestation I70.203 ; Tinea unguium B35.1 ; Pain in right toe(s) M79.674 and Pain in left toe(s) M79.[address] [address] 06/06/2024 Iris Obrien Atherosclerosis of [place] artery of both lower extremities, with unspecified presence of clinical manifestation I70.203 ; Tinea unguium B35.1 ; Pain in right toe(s) M79.674 and Pain in left toe(s) M79.[address] [address] 10/03/2024 Iris Obrien Atherosclerosis of [place] artery of both lower extremities, with unspecified presence of clinical manifestation I70.203 ; Tinea unguium B35.1 ; Pain in right toe(s) M79.674 and Pain in left toe(s) M79.[address] [address] 01/03/2025 Iris Obrien Atherosclerosis of [place] artery of both lower extremities, with unspecified presence of clinical manifestation I70.203 ; Tinea unguium B35.1 ; Pain in right toe(s) M79.674 and Pain in left toe(s) M79.675 [facility] [place] [address] [place] [address] 08/07/2024 Iris Obrien Assessments Encounter Date Diagnosis (ICD Code) Assessment Notes Treatment Notes Treatment Clinical Notes Section Notes 03/07/2024 Tinea unguium (ICD-10 - B35.1) 03/07/2024 Atherosclerosis of [place] artery of both lower extremities, with unspecified presence of clinical manifestation (ICD-10 - I70.203) Q7(A), Q8(2B), Q9(1B,2C) 06/06/2024 Tinea unguium (ICD-10 - B35.1) 06/06/2024 Atherosclerosis of [place] artery of both lower extremities, with unspecified presence of clinical manifestation (ICD-10 - I70.203) Q7(A), Q8(2B), Q9(1B,2C) 10/03/2024 Tinea unguium (ICD-10 - B35.1) 10/03/2024 Atherosclerosis of [place] artery of both lower extremities, with unspecified presence of clinical manifestation (ICD-10 - I70.203) Q7(A), Q8(2B), Q9(1B,2C) 01/03/2025 Tinea unguium (ICD-10 - B35.1) 01/03/2025 Atherosclerosis of [place] artery of both lower extremities, with unspecified [...] Treatment Pending Test Test Name Order Date 80041-EHNBBKR NAIL, 6 OR MORE 03/07/2024 79894-JCHQKSZ NAIL, 6 OR MORE 06/06/2024 30381-ZJDEMVU NAIL, 6 OR MORE 10/03/2024 75803-CJMGWBN NAIL, 6 OR MORE 01/03/2025 63618-FJPY SKIN LESIONS, OVER 4 04/15/20 92765-JTNL SKIN LESIONS, 2 TO 4 07/30/19 35247-ZJEK SKIN LESIONS, 2 TO 4 11/03/19 65865-ESAW SKIN LESIONS, 2 TO 4 07/09/19 68930-KVRP SKIN LESIONS, 2 TO 4 10/09/19 96508-JABH SKIN LESIONS, 2 TO 4 01/15/20 71331-Yvwj. Subungual Hematoma 4 K2159-YVTPEEWU DYSTROPHIC NAILS ANY # I5401-WGTEBYYT DYSTROPHIC NAILS ANY # 76615-DAOHZKPU OF HEMATOMA/FLUID 023 Next Appt Details Provider Name:Iris Coronel vanesa, 04/10/2025 09:30:00 AM, [address] [facility], [place], [address], Insurance Providers Payer Name Payer Address Payer Phone Subscriber Number Group Number Insured Name Patient Relationship to Insured Coverage Start Date Coverage End Date Medicare National Govt Svcs Inc [address] [place] [address] [id number] Jenni Cui Self - patient is the insured [facility] [address] [place] [address] [id number] Jenni Cui Self - patient is the insured Medical (General) History Medical History History ICD Code rheumatoid arthritis osteoarthritis Anemia Back pain basal cell carcinoma Cataracts Diverticulosis Osteoporosis blood clots in lungs Measles Mumps Chicken pox Transfusions 2000 Surgical History Surgery Date(Month/Year) hysterectomy 1987 arthroscopic knee surgery 2001 intestinal surgery, repair 2018 [facility] surgery 03/26/21
== END 2025-01-29 10:09 | disposition home or self-care (01) ==
LOC: HO.RHES 09:13
PROVIDERS: Visit Provider Student in an Organized Health Care Education/Training Program
DX: M06.09 Rheumatoid arthritis without rheumatoid factor, multiple sites (principal); M81.0 Age-related osteoporosis without current pathological fracture; Z51.81 Encounter for therapeutic drug level monitoring; Z79.69 Long term (current) use of other immunomodulators and immunosuppressants
CPT/HCPCS: 99215; G2211

== ENCOUNTER → 2025-01-29 09:12 | Outpatient (BNVA) | payer MEDICARE, OTHER, SELFPAY | PROVIDERS: Visit Provider Student in an Organized Health Care Education/Training Program | DX: M81.0 Age-related osteoporosis without current pathological fracture (principal); R06.00 Dyspnea, unspecified; Z51.81 Encounter for therapeutic drug level monitoring; Z79.69 Long term (current) use of other immunomodulators and immunosuppressants | CPT/HCPCS: 99212 ==

== ENCOUNTER 2025-02-08 11:04 | Outpatient (AMB) | payer MEDICARE, OTHER, SELFPAY ==
--- OUTSIDE RECORDS SUMMARY | 2024-03-09 07:00 | XMS_ITS ---
Author Organization [facility] Address [address] [place] [address] Care Team Providers Care Interactive Media Marketing Director Name Role Phone Iris Obrien Unavailable [phone] Lugo Encounters Encounter Location Date Provider Diagnosis [facility] [address] [place] [address] 03/09/2024 Iris Obrien Plan Of Treatment Next Appt Details Provider Name:Iris alexis, 04/10/2025 09:30:00 AM, [address] [place], [address], Progress Notes * Jenni ARMENDARIZ CDOB:1940 (84 yo F)Acc No.[id number]:03/09/2024 Progress Note Patient: Jenni OH Provider: Myrtle Obrien DPM :1940 A ge:83 Y S ex:Female Date:03/09/2024 Address:[address] [place] [address] [place] Subjective: * Chief Complaints: * 1 . [...] 1 Generated for Printi ng/Faelierg/eTransmitting on: 0 02/08/2025 12:49 PM EDT
--- OUTSIDE RECORDS SUMMARY | 2024-03-21 10:00 | XMS_ITS ---
Author Organization [facility] Address [address] [place] [address] Care Team Providers Care Economic Development Director Name Role Phone Camille Iris Unavailable [phone] Encounters Encounter Location Date Provider Diagnosis [address] [address] 03/21/2024 Iris Obrien Plan Of Treatment Next Appt Details Provider Name:Iris alexis, 04/10/2025 09:30:00 AM, [address] [place], [address], Progress Notes * Jenni ARMENDARIZ CDOB:1940 (84 yo F)Acc No.[id number]:03/21/2024 Progress Note Patient: Jenni OH Provider: Myrtle Obrien DPM :1940 A ge:83 Y S ex:Female Date:03/21/2024 Address: [id number] Subjective: * Chief Complaints: * * Medical History: Objective: * Vitals: Assessment: Plan: * Treatment: * Images: * The named appointment provid er may or may not be the originator of this progress note, and it is not deemed complete until electronically signed by the appointment provider. Sign off status: Pending * Provider: Myrtle Obrien DPM Date: 1 05/21/2023 Generated for Printi ng/Faxing/eTransmitting on: 0 02/08/2025 12:49 PM EDT
[2025-02-08 10:05] VITALS: BP 140/80; PULSE 94; TEMP 36.6; O2SAT 96; BMI 23.7
--- NOTE | 2025-02-08 10:05 | A.OFFPC_ITS ---
Vital Signs 02/08/25 10:05 Height 5 ft 3 in Weight 134 lb BMI 23.7 BP 140/80 H Blood Pressure Location Lt brachial Position Sitting Pulse 94 Pulse Source Pulse Oximeter Temp 97.8 F Temp Source Temporal Artery Scan Pulse Oximetry (%) 96 Oxygen Delivery Method Room Air Intake Visit Reasons: Wellness - Croke pt. [employer] Wellness Director Required: No Accompanied by: Self / Same As Patient Allergies estrogens, conjugated (From Premarin) Allergy (Verified 02/08/25 11:15) vaginal bleeding Tobacco use date assessed: 02/08/25 Fall risk assessment: No Falls in past year Last assessed Fall Risk: 02/08/25 Dental Screening Dental Screen Date: 02/08/25 Did you have a dental visit in the last 12 months?: No Did you have a dental problem in the last 6 months where you did not have access to dental care?: No [facility] Surgical History History of exploratory laparotomy History of colostomy reversal H/O arthroscopy of left knee H/O: hysterectomy Family History (Updated 02/08/25 @ 11:17 by Ariella Bush MA) Mother No problems noted. Father No problems noted. Social History Household Members: Family Housing: House 75 years or older and lives alone: No Alcohol intake: never Patient Tobacco Use Status: Never used Tobacco e-Cigarette/Vaping Use: Never Used service: No Current occupational status: retired Cognitive needs: No Hearing needs: No Vision needs: Yes (Reading glasses) Questionnaire PHQ-9 Over the last 2 weeks, how often have you been bothered by any of the following problems? 1. Little interest or pleasure in doing things: not at all 2. Feeling down, depressed, or hopeless: several days (due to all her provider retired) 3. Trouble falling or staying asleep, or sleeping too much: not at all 4. Feeling tired or having little energy: not at all 5. Poor appetite or overeating: not at all 6. Feeling bad about yourself - or that you are a failure or have let yourself or your family down: not at all 7. Trouble concentrating on things, such as reading the newspaper or watching television: not at all 8. Moving or speaking so slowly that other people could have noticed. Or the opposite - being so fidgety or restless that you have been moving around a lot more than usual: not at all 9. Thoughts that you would be better off or of hurting yourself in some way: not at all Total score: 1 Source: Developed by Drs. Jhoan Echeverria, Magaly Moseley, Doron Espinosa and colleagues, with an educational mikey from [employer]. Thrive Questionnaire Date Thrive assessed: 02/08/25 I am a: Patient Within the past 12 months, did the food you bought not last and you didn't have the money to get more?: Never true Within the past 12 months, did you worry whether your food would run out before you got money to buy more?: Never true Do you have trouble paying for medicines?: No Do you have trouble getting transportation to medical appointments?: No Do you have trouble paying your heating and electricity bill?: No Do you have trouble taking care of your child, family member or friend?: No Do you have trouble with day-to-day activities such as bathing, preparing meals, shopping, managing finances, etc.?: No Are you currently unemployed and looking for a job?: No Are you interested in more education?: No THRIVE Score: 0 AUDIT C Alcohol Use Questionnaire (AUDIT-C) 1. How often do you have a drink containing alcohol?: Never 3. How often do you have six or more drinks on one occasion?: Never Total Score: 0 DK-7 AMB Questionnaire DK-7 Date DK - 7 assessed: 02/08/25 Feeling nervous, anxious, or on edge: 1 = Several days (little anxious due to all her provider retired) Not being able to stop or control worryin = Not at all Worrying too much about different things: 0 = Not at all Trouble relaxin = Not at all Being so restless that it is hard to sit still: 0 = Not at all Becoming easily annoyed or irritable: 0 = Not at all Feeling afraid as if something awful might happen: 0 = Not at all Total DK-7 score (0-4 normal; 5-9 mild; 10-14 moderate; 15-21 severe): 1 Source: Developed by Drs. Jhoan Echeverria, Magaly Moseley, Doron Espinosa and colleagues, with an educational mikey from [employer]. Physical exam (Primary Care) Vital Signs: Last Vital Signs Temp 97.8 F 02/08/25 10:05 Pulse 94 02/08/25 10:05 BP 140/80 H 02/08/25 10:05 Pulse Ox 96 02/08/25 10:05 Oxygen Delivery Method Room Air 02/08/25 10:05 BMI result Body Mass Index 23.7 Tobacco/Smoking Status: Tobacco use Status Tobacco use date assessed 02/08/25 02/08/25 11:19 Patient Tobacco Use Status Never used Tobacco 02/08/25 10:06 e-Cigarette/Vaping Use Never Used 02/08/25 10:06 PHQ-9: PHQ-9 Score PHQ-9: Total score 1 02/08/25 11:19 Thrive Assessment: Date of Thrive Assessment Date Thrive assessed 02/08/25 02/08/25 10:06 Coding
--- NOTE | 2025-02-08 11:24 | AM.OFFVISMDC ---
Intake Vital Signs 02/08/25 10:05 02/08/25 11:36 Height 5 ft 3 in Weight 60.781 kg BMI 23.7 23.7 BP 140/80 H Blood Pressure Location Lt brachial Position Sitting Pulse 94 Pulse Source Pulse Oximeter Temp 97.8 F Temp Source Temporal Artery Scan Pulse Oximetry (%) 96 Oxygen Delivery Method Room Air Intake Visit Reasons: Wellness - Alon pt. Tobacco Wetter Required: No Accompanied by: Self / Same As Patient Allergies estrogens, conjugated (From Premarin) Allergy (Verified 02/08/25 11:15) vaginal bleeding HPI HPI Comments History of Present Illness Details 84 year old female with history of rheumatoid arthritis, iron deficiency anemia, osteoporosis presenting to the office today for management of chronic conditions, to establish care, and for annual wellness visit. She currently lives with her son Dagoberto who assist her with ADLs and she does not drive. She is a former patient of Dr. Chi, last seen 7 months ago. Last seen by Dr. Chi, 7 months ago. She is very active, still dances and does chair yoga at the [facility]. Rheumatoid arthritis-last seen 01/[address] Varghese. Currently in remission, not on any medication. Reports she is able to walk up multiple flights of stairs without any pain. No falls and does not use assistive devices Osteoporosis-due for DEXA scan which is ordered. Taking calcium and vitamin-D. Exercises on a regular basis Concerns: Large umbilical hernia has been present for years and is enlarging. Denies any prior history of abdominal surgeries. There is no tenderness or erythema. She is able to reduce the mass. Health Maintenance: Last DEXA 04/2023, ordered ROS: General: No fevers, malaise, unintentional weight loss HEENT: No blurred vision, diplopia. No sore throat, nasal congestion, rhinorrhea, sinus pain, ear pain Cardiovascular: No chest pain, palpitations, or leg edema Respiratory: No shortness of breath, wheezing, cough GI: see hpi : No dysuria, hematuria, increased urinary frequency, decreased urinary output MSK: No myalgia, back pain Neuro: No headaches, weakness, paresthesias Skin: No rashes or lesions EXAM: Constitutional - Awake and Alert, No apparent distress Eyes - PERRL Cardiovascular - S1S2, RRR, No edema Respiratory - Normal lung expansion, Normal respiratory effort, No respiratory distress, CTA bilaterally Abd- large umbilical hernia, soft, reducible, no erythema Extremities - no calf tenderness bilaterally, no swelling Skin - Warm/Dry Neurological - Alert & oriented x3 Psychological - Appropriate affect [facility] Medical History (Updated 02/08/25 @ 12:26 by ZANA Winchester) Osteoporosis Seronegative rheumatoid arthritis Umbilical hernia Surgical History History of exploratory laparotomy History of colostomy reversal H/O arthroscopy of left knee H/O: hysterectomy Family History (Updated 02/08/25 @ 11:17 by Ariella Bush MA) Mother No problems noted. Father No problems noted. Social History Household Members: Family Housing: House 75 years or older and lives alone: No Alcohol intake: never Patient Tobacco Use Status: Never used Tobacco e-Cigarette/Vaping Use: Never Used Questionnaire Medicare Wellness Checkup What is your age?: 80 or older What gender do you identify with?: female During the past 4 weeks, how much have you been bothered by emotional problems such as feeling anxious, depressed, irritable, sad or downhearted, and blue?: not at all During the past 4 weeks, has your physical & emotional health limited your social activities with family, friends, neighbors, or groups?: not at all During the past 4 weeks, how much bodily pain have you generally had?: no pain During the past 4 weeks, was someone available to help you if you needed & wanted help?: yes, as much as I wanted (PT son help her) During the past 4 weeks, what was the hardest physical activity you could do for at least 2 minutes?: very light Can you get to places out of walking distance without help? (For eg., can you travel alone on buses, taxis or drive your car?): Yes Can you go shopping for groceries or clothes without someone's help?: Yes Can you prepare your own meals?: Yes Can you do your housework without help?: No (Major cleaning her son does) Because of any health problems, do you need the help of another person with your personal care needs such as eating, bathing, dressing or getting around the house?: No Can you handle your own money without help?: Yes During the past 4 weeks, how would you rate your health in general?: very good (Due to history of RA but in remission ) During the past 4 weeks how have things been going for you?: very well; could hardly better Are you having difficulties driving your car?: not applicable, I don't use a car (son drives her car) Do you always fasten your seat belt when you are in a car?: yes, usually During past 4 weeks, have you been bothered by the following: never: Falling or dizzy when standing up, Sexual problems?, Trouble eating well?, Teeth or denture problems? and Problems using the telephone? and sometimes: Tiredness or fatigue? Have you fallen 2 or more times in the past year?: No Are you afraid of falling?: No Are you a smoker?: no During the past 4 weeks, how many drinks of wine, beer, or other alcoholic beverages did you have?: no alcohol at all Do you exercise for about 20 minutes 3 or more times a week?: yes, some of the time ([facility]) Have you been given information to help with the following?: yes: Keeping track of your medications? and no: Hazards in your house that might hurt you? How often do you have trouble taking medicines the way you have been told to take them?: I always take medicine as prescribed How confident are you that you can control & manage most of your health problems?: I do not have any health problems What is your race?: White Mini Mental State Exam (MMSE) Orientation What is the (year) (season) (date) (day) (month)?: year, season, date and month Where are we (state) (county) (town or city) (hospital) (floor)?: state, county, town or city, hospital/clinic and floor Registration Name of 3 unrelated objects clearly and slowly, then ask patient to repeat all 3 of them. (1st repeat determines score. Make sure they can repeat all three): object 1, object 2 and object 3 Attention & Calculation (CHOOSE ONE) Ask pt to begin with 100 & count backward by 7. Stop after 5 repeats. If pt cannot ask them to spell the word WORLD backward.: 93, 86, 79, 72 and 65 Spell WORLD backwards (DLROW): 5 letters Recall Ask patient to repeat the 3 items from question #3.: object 3 Language Show patient a wristwatch & ask what it is. Repeat for pencil.: watch and pencil Ask the patient to repeat the phrase 'No ifs, ands, or buts' after you.: correct Ask the patient to 'take a piece of paper with their right hand' 'fold paper in half' 'place paper on floor': take paper in right hand, fold paper in half and place paper on floor Print the sentence 'CLOSE YOUR EYES' on a piece. If patient actually closes eyes then score.: followed written direction Give patient a blank piece of paper & ask to write a sentence. Score if it contains a noun & verb.: sentence contains subject and verb Ask patient to copy figure of intersecting pentagons exactly. Score if all 10 angles & 2 intersects are included.: all 10 angles present & 2 are intersected (Missed one angle) Score Score: 32 Activity of Daily Living Bathing - sponge bath, tub bath or shower: receives no assistance (gets in/out by self, if usual bathing means Dressing - getting clothes from closets & drawers, including inner/outer garments & fasteners.: gets clothes & gets completely dressed without help Toileting - going to the 'toilet room' for urine/bowel elimination & cleaning self/arranging clothes: goes to toilet room, cleans self, arranges clothes without help Transfer: moves in & out of bed and chair without help (may use support object) Continence: controls urination/bowel movements completely by self Feeding: feeds self without help Total Score: 0 Information obtained from: patient Using telephone: independent Traveling: dependent (son does driving) Shopping: needs assistance (does the planning, son does the actual shopping. Would like to start shopping again) Preparing meals: dependent (son makes meals) Housework: needs assistance (does some chores, son does most of the major cleaning) Taking medicine: independent Managing money: independent PHQ-9 Over the last 2 weeks, how often have you been bothered by any of the following problems? 1. Little interest or pleasure in doing things: not at all 2. Feeling down, depressed, or hopeless: not at all 3. Trouble falling or staying asleep, or sleeping too much: not at all 4. Feeling tired or having little energy: not at all 5. Poor appetite or overeating: not at all 6. Feeling bad about yourself - or that you are a failure or have let yourself or your family down: not at all 7. Trouble concentrating on things, such as reading the newspaper or watching television: not at all 8. Moving or speaking so slowly that other people could have noticed. Or the opposite - being so fidgety or restless that you have been moving around a lot more than usual: not at all 9. Thoughts that you would be better off or of hurting yourself in some way: not at all Total score: 0 Depression Screening Interpretation: Negative Depression Screening Done: Yes 47347 - PHQ-9 Billing: Yes Source: Developed by Drs. Jhoan Echeverria, Magaly Moseley, Doron Espinosa and colleagues, with an educational mikey from [employer]. Physical Exam Vital Signs: Last Vital Signs Temp 97.8 F 02/08/25 10:05 Pulse 94 02/08/25 10:05 BP 140/80 H 02/08/25 10:05 Pulse Ox 96 02/08/25 10:05 Oxygen Delivery Method Room Air 02/08/25 10:05 BMI result Body Mass Index 23.7 Assessment & Plan Assessment & Plan (1) Medicare annual wellness visit, initial: Code(s): Z00.00 - Encounter for general adult medical examination without abnormal findings Plan: Wellness visit performed. See above for results. Patient has a good state of general health. No assistive devices, no falls. Son assists with ADLs and driving but is otherwise independent. She is very active exercising regularly. Labs performed 01/22 reviewed with patient (2) Osteoporosis: Comment: DEXA 04/2023: AP Spine -0.9, Left femur neck -2.6, Left femur total -2.5 Alendronate 04/2023 - 05/2023. GI upset Code(s): M81.0 - Age-related osteoporosis without current pathological fracture Qualifiers: Osteoporosis type: age-related Presence of current pathological fracture: without current pathological fracture Qualified Code(s): M81.0 - Age-related osteoporosis without current pathological fracture Plan: Continue calcium and vitamin-D. Weight-bearing exercise. Updated DEXA scan pending (3) Seronegative rheumatoid arthritis: Comment: 2014-Leflunomide started, methotrexate started. 07/2015 Methotrexate 4 tabs weekly stopped and Leflunomide 20 mg lowered to 10mg. Shortly after lowering Leflunomide increased back up to 20 mg. Also on Leucovorin for MCV of 108. 05/2016- Off Methotrexate and Leflunomide with return of joint pain and swelling, restarted on leflunomide 20 mg daily. Leflunomide dose decreased to 10mg January 2022. Code(s): M06.00 - Rheumatoid arthritis without rheumatoid factor, unspecified site Plan: Stable. In remission. Continue following with Rheumatology (4) Umbilical hernia: Code(s): K42.9 - Umbilical hernia without obstruction or gangrene Plan: Large umbilical hernia. Referred to General surgery and CT scan of the abdomen pelvis ordered. Advised if she experiences any significant pain, is unable to reduce the area advised to present immediately to the ER. Plan Follow-up in the office in 1 year Orders: Orders CT abdomen pelvis wo IV con Today K42.9 - Umbilical hernia without obstruction or gangrene Quality Reporting (2019) Adult ([facility] 138/2/69) Smoking risk assessment performed?: Yes Patient Tobacco Use Status: Never used Tobacco Depression screening performed: Yes Systolic BP not done?: No Diastolic BP not done?: No BMI screening not done: No Sexual Activity Screening ([facility] 153) Sexually active?: No Immunizations (CMS 147, 117) Annual Influenza Vaccine: No (planning on vaccine) Measles Antibody Test: No (immunized) Mumps Antibody Test: No Rubella Antibody Test: No (immunized) Varicella Antibody Test: No (had chicken pox) Anti Hepatitis A IgG Antigen test: No (low risk) Anti Hepatitis B Virus Surface Ab test: No (immunized) Fall Risk Screening ([facility] 139) Fall risk assessment: No Falls in past year Dementia Assessment ([facility] 149) Cognitive assessment recorded: Yes Assessment of cognition with standardized tool: Yes Depression/Bipolar (159/160/161/177) PHQ-9: Total score: 0 Coding Level of Care Code Medicare First (G0438) Est Pt Level 4 (09924) Diagnoses Medicare annual wellness visit, initial Z00.00 Age-related osteoporosis without current pathological fracture M81.0 Osteoporosis type: age-related Presence of current pathological fracture: without current pathological fracture Seronegative rheumatoid arthritis M06.00 Umbilical hernia K42.9 Additional Codes PHQ-9 - 76038 - PHQ-9 Billing: Yes ([id number])
[2025-02-08 11:36] VITALS: BMI 23.7
--- OUTSIDE RECORDS SUMMARY | 2025-02-08 12:50 | XMS_ITS | Encounter Summary ---
Author Organization [facility] Address [address] [place] [address] Phone Care Team Providers Care Returns Processor Name Role Phone Randy Chi MD Primary Care Provider Reason for Visit * Reason Onset Date Comments Referral 02/04/2025 Encounter Details Date Type Department Care Team (Late st Contact Info) Description 02/04/2025 Telephone [facility] Rheumatology [address] [place] [address] Natalie Jaime MD, MPH [address], [address] [place] [address] [email or web address] Referral Social History Tobacco Use Types Packs/Day Years [...] on file documented as of this encounter Progress Notes * Martha Villegas - 02/04/2025 2:33 PM EDT Pt son called in. A referral was sent last week. Please let them know if it was received. Central Support Floor Tech (Please do not reply to this user; this inbox is not monitored.) Thank you. documented in this encounter Plan of Treatment Not on file documented as of this encounter Visit Diagnoses Not on filedocumented in this encounter Care Teams Returns Processor Relationship Specialty Start Date End Date Randy Chi MD [address] [place] [address] [place] [id number] PCP - General Internal Medicine 02/16/21 documented as of this encounter Additional Source Comments The information contained in this document represents components of the legal health record. It is not the complete legal health record.[facility]
--- OUTSIDE RECORDS SUMMARY | 2025-02-08 12:50 | XMS_ITS | Patient Health Record ---
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, with unspecified presence of clinical manifestation (I70.203) Active confirmed Q7(A), Q8(2B), Q9(1B,2 C) Vital Signs Blood pressure diastolic 65 mm Hg 01/03/2025 Height 5 ft 3 in in 01/03/2025 Blood pressure systolic 120 mm Hg 01/03/2025 Weight 125 lbs 01/03/2025 BMI 22.14 kg/m2 01/03/2025 Procedures Procedure Date Ordered Date Performed Result Body Sit e 51553-NGMHACG NAIL, 6 OR MORE 03/07/2024 N/A 20689-GAOEGIL NAIL, 6 OR MORE 06/06/2024 N/A 87573-CGLOLZO NAIL, 6 OR MORE 10/03/2024 N/A 28905-RVGTEKS NAIL, 6 OR MORE 01/03/2025 N/A Encounters Encounter Location Date Provider Diagnosis [address] [address] 03/07/2024 Iris Obrien 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, with unspecified presence of clinical manifestation I70.203 ; Tinea unguium B35.1 ; Pain in right toe(s) M79.674 and Pain in left toe(s) M79.[address] [address] 06/06/2024 Iris Obrien 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, with unspecified presence of clinical manifestation I70.203 ; Tinea unguium B35.1 ; Pain in right toe(s) M79.674 and Pain in left toe(s) M79.[address] [address] 10/03/2024 Iris Obrien 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, with unspecified presence of clinical manifestation I70.203 ; Tinea unguium B35.1 ; Pain in right toe(s) M79.674 and Pain in left toe(s) M79.[address] [address] 01/03/2025 Iris Obrien 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, with unspecified presence of clinical manifestation I70.203 ; Tinea unguium B35.1 ; Pain in right toe(s) M79.674 and Pain in left toe(s) M79.675 [facility] Kathryn [address] [place] [address] 08/07/2024 Iris Obrien Assessments Encounter Date Diagnosis (ICD Code) Assessment Notes Treatment Notes Treatment Clinical Notes Section Notes 03/07/2024 Tinea unguium (ICD-10 - B35.1) 03/07/2024 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, with unspecified presence of clinical manifestation (ICD-10 - I70.203) Q7(A), Q8(2B), Q9(1B,2C) 06/06/2024 Tinea unguium (ICD-10 - B35.1) 06/06/2024 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, with unspecified presence of clinical manifestation (ICD-10 - I70.203) Q7(A), Q8(2B), Q9(1B,2C) 10/03/2024 Tinea unguium (ICD-10 - B35.1) 10/03/2024 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, with unspecified presence of clinical manifestation (ICD-10 - I70.203) Q7(A), Q8(2B), Q9(1B,2C) 01/03/2025 Tinea unguium (ICD-10 - B35.1) 01/03/2025 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 Subungual Hematoma 4 F6236-FALXGFXD DYSTROPHIC NAILS ANY # P2311-ZOUVBGEE DYSTROPHIC NAILS ANY # 14129-TQETDNWB OF HEMATOMA/FLUID 023 Next Appt Details Provider Name:Iris Coronel vanesa, 04/10/2025 09:30:00 AM, [address] [facility], [place], [address], Insurance Providers Payer Name Payer Address Payer Phone Subscriber Number Group Number Insured Name Patient Relationship to Insured Coverage Start Date Coverage End Date Medicare National Govt Sv[employer] Inc [address] [place] [address] [id number] Jenni Cui Self - patient is the insured [facility] ([facility]) [address] [place] [address] [id number] Jenni Cui Self - patient is the insured Medical (General) History Medical History History ICD Code rheumatoid arthritis osteoarthritis Anemia Back pain basal cell carcinoma Cataracts Diverticulosis Osteoporosis blood clots in lungs Measles Mumps Chicken pox Transfusions 2000 Surgical History Surgery Date(Month/Year) hysterectomy 1987 arthroscopic knee surgery 2001 intestinal surgery, repair 2018 mohs surgery 03/26/21
--- OUTSIDE RECORDS SUMMARY | 2025-02-08 12:50 | XMS_ITS | Clinical Summary ---
Author Organization [facility] Address [address] [facility] [address] [place] [address] Phone Care Team Providers Care Marketing Automation Manager Name Role Phone Randy Chi MD Primary Care Provider Allergies Active Allergy Reactions Criticality Noted Date Comments Conjugated Estrogens 02/23/2021 Blood clot in lungs Medications leflunomide (ARAVA) 10 MG tablet Take 10 mg by mouth daily. Active Active Problems Problem Noted Date Diagnosed Date Basal cell carcinoma (BCC) of nasal tip 02/24/20 21 Basal cell carcinoma (BCC) of right ala nasi 03/2021 Encounters Date Type Department Care Team Description 02/04/2025 Telephone [facility] Rheumatology [address] [place] [address] Natalie Jaime MD, MPH Referral from Last 3 Months Family History Medical History Relation Comments Heart [...] file Insurance [facility]IC[facility] PART A & [facility] MEDICARE [place] [address] MEDICARE PART A & B [facility] EXTENSION MEDICARE SUPPLEMENT [place] [address] MEDICARE PART A & B [facility] EXTENSION MEDICARE SUPPLEMENT MEDICARE PART A & B [facility] EX[employer]ENSION [place] [address] MEDICARE PART A & B [place] [address] MEDICARE PART A & B [place] [address] MEDICARE PART A & B Member Subscriber Plan / Payer ( fective 2003-Present) Name:Jenni Chapman Member ID:[id number] Relation to Subscriber:Self Name:Jenni Chapman Subscriber ID:[id number] Payer ID:[id number] Group ID:Not on file Type:Medicare Address: [place] [address] [address] [facility] [place] [address] MEDICARE PART A & B [employer] EXTENSION [place] [address] MEDICARE PART A & B [facility] MEDICARE SUPPLEMENT Care Teams Marketing Automation Manager Relationship Specialty Start Date End Date Randy Chi MD [address] [place] [address] [place] [address] PCP - General Internal Medicine 02/16/21 Additional Source Comments The information contained in this document represents components of the legal health record. It is not the complete legal health record.[facility]
--- OUTSIDE RECORDS SUMMARY | 2025-02-08 12:50 | XMS_ITS | Encounter Summary ---
Author Organization [facility] Address [address] [place] [address] Phone Care Team Providers Care Medical Office Technology Instructor Name Role Phone Randy Chi MD Primary Care Provider Encounter Details Date Type Department Care Team (Late st Contact Info) Description 03/31/2021 Procedure Pass OR Admitting Dept - Virtual Department [address] [place] [address] Social History Tobacco Use Types Packs/Day Years [...] on filedocumented in this encounter Care Teams Medical Office Technology Instructor Relationship Specialty Start Date End Date Randy Chi MD [address] [place] [address] [place] [address] PCP - General Internal Medicine 02/16/21 documented as of this encounter Additional Source Comments The information contained in this document represents components of the legal health record. It is not the complete legal health record.[facility]
== END 2025-02-08 12:58 | disposition home or self-care (01) ==
LOC: HO.HMCHD 11:04
PROVIDERS: Visit Provider Physician Assistant
DX: Z00.00 Encounter for general adult medical examination without abnormal findings (principal); K42.9 Umbilical hernia without obstruction or gangrene; M81.0 Age-related osteoporosis without current pathological fracture; M06.00 Rheumatoid arthritis without rheumatoid factor, unspecified site

== ENCOUNTER → 2025-02-08 11:04 | Outpatient (BNVA) | payer MEDICARE, OTHER, SELFPAY | PROVIDERS: Visit Provider Physician Assistant | DX: Z00.00 Encounter for general adult medical examination without abnormal findings (principal); Z76.89 Persons encountering health services in other specified circumstances; M81.0 Age-related osteoporosis without current pathological fracture; M06.00 Rheumatoid arthritis without rheumatoid factor, unspecified site; K42.9 Umbilical hernia without obstruction or gangrene; Z13.30 Encounter for screening examination for mental health and behavioral disorders, unspecified | CPT/HCPCS: 96127; 99212 ==

== ENCOUNTER 2025-03-08 10:49 | Outpatient (REF) | payer MEDICARE, OTHER, SELFPAY ==
--- OUTSIDE RECORDS SUMMARY | 2024-03-07 07:00 | XMS_ITS ---
Author Organization [facility] Address [address] [place] [address] Care Team Providers Care Bird Keeper Name Role Phone Iris Obrien Unavailable [phone] Lugo Encounters Encounter Location Date Provider Diagnosis [facility] [address] [place] [address] 03/07/2024 Iris Obrien Plan Of Treatment Next Appt Details Provider Name:Iris alexis, 04/10/2025 09:30:00 AM, [address] [place], [address], Progress Notes * Jenni ARMENDARIZ CDOB:1940 (84 yo F)Acc No.[id number]:03/07/2024 Progress Note Patient: Jenni [place] Provider: Myrtle Obrien DPM :1940 A ge:83 Y S ex:Female Date:03/07/2024 Address:[address] [place] [address] [place] Subjective: * Chief Complaints: * [address] Lugo. * Medical History: Objective: * Vitals: Assessment: Plan: * Treatment: * Images: * The named appointment provid er may or may not be the originator of this progress note, and it is not deemed complete until electronically signed by the appointment provider. Sign off status: Pending * Provider: Myrtle Obrien DPM Date: Generated for Printi ng/Faelierg/eTransmitting on: 1 12:38 PM EDT
--- OUTSIDE RECORDS SUMMARY | 2024-03-09 07:00 | XMS_ITS ---
Author Organization [facility] Address [address] [place] [address] Care Team Providers Care Bar Host/Hostess Name Role Phone Iris Obrien Unavailable [phone] Lugo Encounters Encounter Location Date Provider Diagnosis [facility] [address] [place] [address] 03/09/2024 Iris Obrien Plan Of Treatment Next Appt Details Provider Name:Iris alexis, 04/10/2025 09:30:00 AM, [address] [place], [address], Progress Notes * Jenni ARMENDARIZ CDOB:1940 (84 yo F)Acc No.[id number]:03/09/2024 Progress Note Patient: Jenni [place] Provider: Myrtle Obrien DPM :1940 A ge:83 Y S ex:Female Date:03/09/2024 Address:[address] [place] [address] [place] Subjective: * Chief Complaints: * 1 . [...]
--- OUTSIDE RECORDS SUMMARY | 2024-03-21 10:00 | XMS_ITS ---
Author Organization [facility] Address [address] [place] [address] Care Team Providers Care Surveying Teacher Name Role Phone Camille Iris Unavailable [phone] Encounters Encounter Location Date Provider Diagnosis [address] [address] 03/21/2024 Iris Obrien Plan Of Treatment Next Appt Details Provider Name:Iris alexis, 04/10/2025 09:30:00 AM, [address] [place], [address], Progress Notes * Jenni ARMENDARIZ CDOB:1940 (84 yo F)Acc No.[id number]:03/21/2024 Progress Note Patient: Jenni OH Provider: Myrtle Obrien DPM :1940 A ge:83 Y S ex:Female Date:03/21/2024 Address: [id number] Subjective: * Chief Complaints: * * Medical History: Objective: * Vitals: Assessment: Plan: * Treatment: * Images: * The named appointment provid er may or may not be the originator of this progress note, and it is not deemed complete until electronically signed by the appointment provider. Sign off status: Pending * Provider: Myrtle Obrien DPM Date: 05/21/2023 Generated for Printi ng/Faxing/eTransmitting on: 12:38 PM EDT
--- OUTSIDE RECORDS SUMMARY | 2025-03-08 12:38 | XMS_ITS | Patient Health Record ---
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, with unspecified presence of clinical manifestation (I70.203) Active confirmed Q7(A), Q8(2B), Q9(1B,2 C) Vital Signs Blood pressure diastolic 65 mm Hg 01/03/2025 Height 5 ft 3 in in 01/03/2025 Blood pressure systolic 120 mm Hg 01/03/2025 Weight 125 lbs 01/03/2025 BMI 22.14 kg/m2 01/03/2025 Procedures Procedure Date Ordered Date Performed Result Body Sit e 88222-OEKRUZE NAIL, 6 OR MORE 06/06/2024 N/A 81676-HIAXYAA NAIL, 6 OR MORE 10/03/2024 N/A 52062-ZPXKLBN NAIL, 6 OR MORE 01/03/2025 N/A Encounters Encounter Location Date Provider Diagnosis [address] [address] 06/06/2024 Iris Obrine 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, with unspecified presence of clinical manifestation I70.203 ; Tinea unguium B35.1 ; Pain in right toe(s) M79.674 and Pain in left toe(s) M79.[address] [address] 10/03/2024 Iris Obrien 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, with unspecified presence of clinical manifestation I70.203 ; Tinea unguium B35.1 ; Pain in right toe(s) M79.674 and Pain in left toe(s) M79.[address] [address] 01/03/2025 Iris Obrien 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, with unspecified presence of clinical manifestation I70.203 ; Tinea unguium B35.1 ; Pain in right toe(s) M79.674 and Pain in left toe(s) M79.[address] [address] 08/07/2024 Iris Obrien Assessments Encounter Date Diagnosis (ICD Code) Assessment Notes Treatment Notes Treatment Clinical Notes Section Notes 06/06/2024 Tinea unguium (ICD-10 - B35.1) 06/06/2024 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, with unspecified presence of clinical manifestation (ICD-10 - I70.203) Q7(A), Q8(2B), Q9(1B,2C) 10/03/2024 Tinea unguium (ICD-10 - B35.1) 10/03/2024 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, with unspecified presence of clinical manifestation (ICD-10 - I70.203) Q7(A), Q8(2B), Q9(1B,2C) 01/03/2025 Tinea unguium (ICD-10 - B35.1) 01/03/2025 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, with unspecified presence of clinical manifestation (ICD-10 - I70.203) Q7(A), Q8(2B), Q9(1B,2C) 01/03/2025 Pain in right toe(s) (ICD-10 - M79.674) 06/06/2024 Pain in right toe(s) (ICD-10 - M79.674) 10/03/2024 Pain in right toe(s) (ICD-10 - M79.674) 01/03/2025 Pain in left toe(s) (ICD-10 - M79.675) 10/03/2024 Pain in left toe(s) (ICD-10 - M79.675) 06/06/2024 Pain in left toe(s) (ICD-10 - M79.675) Plan Of Treatment Pending Test Test Name Order Date 55481-JSKSRZV NAIL, 6 OR MORE 03/07/2024 78379-CFCNVED NAIL, 6 OR MORE 06/06/2024 50885-JQBSNIM NAIL, 6 OR MORE 10/03/2024 40088-IRGULZU NAIL, 6 OR MORE 01/03/2025 50173-ZAOA SKIN LESIONS, OVER 4 04/15/20 96465-QSKZ SKIN LESIONS, 2 TO 4 07/30/19 51438-TYHQ SKIN LESIONS, 2 TO 4 11/03/19 15530-FDZL SKIN LESIONS, 2 TO 4 07/09/19 53846-BDJH SKIN LESIONS, 2 TO 4 10/09/19 98140-OUBI SKIN LESIONS, 2 TO 4 01/15/20 95401-Nhmi. Subungual Hematoma 4 Y7192-BYVSZQBR DYSTROPHIC NAILS ANY # 05 / S1987-HWYKBRRF DYSTROPHIC NAILS ANY # 22971-XSQDSLSY OF HEMATOMA/FLUID 023 Next Appt Details Provider Name:Iris alexis, 04/10/2025 09:30:00 AM, [address] [facility], [place], [address], Insurance Providers Payer Name Payer Address Payer Phone Subscriber Number Group Number Insured Name Patient Relationship to Insured Coverage Start Date Coverage End Date Medicare National Govt [facility] [address] [place] [address] [id number] Jenni Cui Self - patient is the insured [employer] ([employer]) [address] [place] [address] [id number] Jenni Cui Self - patient is the insured Medical (General) History Medical History History ICD Code rheumatoid arthritis osteoarthritis Anemia Back pain basal cell carcinoma Cataracts Diverticulosis Osteoporosis blood clots in lungs Measles Mumps Chicken pox Transfusions 2000 Surgical History Surgery Date(Month/Year) hysterectomy 1988 arthroscopic knee surgery 2001 intestinal surgery, repair 2018 mohs surgery 03/26/21
--- OUTSIDE RECORDS SUMMARY | 2025-03-08 12:39 | XMS_ITS | Clinical Summary ---
Author Organization [facility] Address [address] [facility] [address] [place] [address] Phone Care Team Providers Care Salesperson Furs Name Role Phone Randy Chi MD Primary [...] Type Department Care Team Description 02/04/2025 Telephone [facility] Rheumatology [address] [place] [address] Natalie Jaime MD, MPH Referral from Last [...] file Insurance MEDICARE PART A & B [facility] [employer] [place] [address] MEDICARE PART A & B [facility] EXTENSION MEDICARE SUPPLEMENT [place] [address] MEDICARE PART A & B [facility] EXTENSION MEDICARE SUPPLEMENT MEDICARE PART A & B [facility] EX[employer]ION [place] [address] MEDICARE PART A & B [employer] [place] [address] MEDICARE PART A & B [employer] [place] [address] MEDICARE PART A & B Member Subscriber Plan / Payer ( fective 2003-Present) Name:Jenni Chapman Member ID:[id number] Relation to Subscriber:Self Name:Jenni Chapman Subscriber ID:[id number] Payer ID:[id number] Group ID:Not on file Type:Medicare Address: [employer] [address] [address] [facility] [place] [address] MEDICARE PART A & B [employer]ION [place] [address] MEDICARE PART A & B [facility]ION MEDICARE SUPPLEMENT Care Teams Salesperson Furs Relationship Specialty Start Date End Date Randy Chi MD [address] [place] [address] [place] [address] PCP - General Internal Medicine 02/16/21 Additional Source Comments The information contained in this document represents components of the legal health record. It is not the complete legal health record.[facility]
--- OUTSIDE RECORDS SUMMARY | 2025-03-08 12:39 | XMS_ITS | Encounter Summary ---
Author Organization [facility] Address [address] [place] [address] Phone Care Team Providers Care Paper Handler Name Role Phone Randy Chi MD Primary Care Provider Encounter Details Date Type Department Care Team (Late st Contact Info) Description 03/31/2021 Procedure Pass OR Admitting Dept - Virtual Department [address] [place] [address] Social History Tobacco Use Types Packs/Day Years [...] on filedocumented in this encounter Care Teams Paper Handler Relationship Specialty Start Date End Date Randy Chi MD [address] [place] [address] [place] [address] PCP - General Internal Medicine 02/16/21 documented as of this encounter Additional Source Comments The information contained in this document represents components of the legal health record. It is not the complete legal health record.[facility]
== END 2025-03-08 10:50 | disposition home or self-care (01) ==
LOC: HO.LAB 10:49
PROVIDERS: PCP Physician Assistant; Visit Provider Student in an Organized Health Care Education/Training Program
DX: Z79.899 Other long term (current) drug therapy (principal)
CPT/HCPCS: 36415; 82306

== ENCOUNTER 2025-03-19 09:55 | Outpatient (AMB) | payer MEDICARE, OTHER, SELFPAY ==
--- OUTSIDE RECORDS SUMMARY | 2024-03-07 06:00 | XMS_ITS ---
Author Organization [facility] Address [address] [place] [address] Care Team Providers Care Circuit Designer Name Role Phone Iris Obrien Unavailable [phone] Lugo Encounters Encounter Location Date Provider Diagnosis [facility] [address] [place] [address] 03/07/2024 Iris Obrien Plan Of Treatment Next Appt Details Provider Name:Iris alexis, 04/10/2025 09:30:00 AM, [address] [place], [address], Progress Notes * KALA Jenni CDOB:1940 (84 yo F)Acc No.[id number]:03/07/2024 Progress Note Patient: Jenni [place] Provider: Myrtle Obrien DPM :1940 A ge:83 Y S ex:Female Date:03/07/2024 Address:[address] [place] [address] [place] Subjective: * Chief Complaints: * [address] Lugo. * Medical History: Objective: * Vitals: Assessment: Plan: * Treatment: * Images: * The named appointment provid er may or may not be the originator of this progress note, and it is not deemed complete until electronically signed by the appointment provider. Sign off status: Pending * Provider: Myrtle Obrien DPM Date: Generated for Holgeri freddy/Fabennie/eTransmitting on: 05/19/2024 11:23 AM EST
--- OUTSIDE RECORDS SUMMARY | 2024-03-09 06:00 | XMS_ITS ---
Author Organization [facility] Address [address] [place] [address] Care Team Providers Care Technology Education Teacher Name Role Phone Iris Obrien Unavailable [phone] Lugo Encounters Encounter Location Date Provider Diagnosis [facility] [address] [place] [address] 03/09/2024 Iris Obrien Plan Of Treatment Next Appt Details Provider Name:Iris alexis, 04/10/2025 09:30:00 AM, [address] [place], [address], Progress Notes * KALA Jenni CDOB:1940 (84 yo F)Acc No.[id number]:03/09/2024 Progress Note Patient: Jenni [place] Provider: Myrtle Obrien DPM :1940 A ge:83 Y S ex:Female Date:03/09/2024 Address:[address] [place] [address] [place] Subjective: * Chief Complaints: * 1 . [...] Myrtle Obrien DPM Date: Generated for Holgeri ng/Faelierg/eTransmitting on: 05/19/2024 11:24 AM EST
--- OUTSIDE RECORDS SUMMARY | 2024-03-21 09:00 | XMS_ITS ---
Author Organization [facility] Address [address] [place] [address] Care Team Providers Care Oil Lease Operator Name Role Phone Camille Iris Unavailable [phone] Encounters Encounter Location Date Provider Diagnosis [address] [address] 03/21/2024 Iris Obrien Plan Of Treatment Next Appt Details Provider Name:Iris alexis, 04/10/2025 09:30:00 AM, [address] [place], [address], Progress Notes * Jenni ARMENDARIZ CDOB:1940 (84 yo F)Acc No.[id number]:03/21/2024 Progress Note Patient: Jenni OH Provider: Myrtle Obrien DPM :1940 A ge:83 Y S ex:Female Date:03/21/2024 Address: [id number] Subjective: * Chief Complaints: * * Medical History: Objective: * Vitals: Assessment: Plan: * Treatment: * Images: * The named appointment provid er may or may not be the originator of this progress note, and it is not deemed complete until electronically signed by the appointment provider. Sign off status: Pending * Provider: Myrtle Obrien DPM Date: 05/21/2023 Generated for Catarina hayes/Tevin/eTransmitting on: 05/19/2024 11:24 AM EST
--- OUTSIDE RECORDS SUMMARY | 2025-03-19 11:24 | XMS_ITS | Patient Health Record ---
Author Organization [facility] Miah raul Donaldson Address [address] [facility] [place] [address] Care Team Providers Care Level Glass Vial Filler Name Role Phone Iris Obrien Unavailable [phone] Allergies Allergen (clinical drug ingredient) Drug/Non Drug Allergy documented on EMR Reaction Allergy Type Onset Date Status estrogens, conjugated (SENIOR CARE) Premarin lung clots Drug Allergy Active Anesthesia [...] atherosclerosis of arteries of lower limbs (disorder) ([id number] ) Atherosclerosis of round valley artery of both lower extremities, with unspecified presence of clinical manifestation (I70.203) Active confirmed Q7(A), Q8(2B), Q9(1B,2 C) Vital Signs Blood pressure diastolic 65 mm Hg 01/03/2025 Height 5 ft 3 in in 01/03/2025 Blood pressure systolic 120 mm Hg 01/03/2025 Weight 125 lbs 01/03/2025 BMI 22.14 kg/m2 01/03/2025 Procedures Procedure Date Ordered Date Performed Result Body Sit e 70791-TDHDQVC NAIL, 6 OR MORE 06/06/2024 N/A 24208-AHZSMLW NAIL, 6 OR MORE 10/03/2024 N/A 09985-GBZTZTM NAIL, 6 OR MORE 01/03/2025 N/A Encounters Encounter Location Date Provider Diagnosis [address] [address] 06/06/2024 Iris Obrien Atherosclerosis of round valley artery of both lower extremities, with unspecified presence of clinical manifestation I70.203 ; Tinea unguium B35.1 ; Pain in right toe(s) M79.674 and Pain in left toe(s) M79.[address] [address] 10/03/2024 Iris Obrien Atherosclerosis of round valley artery of both lower extremities, with unspecified presence of clinical manifestation I70.203 ; Tinea unguium B35.1 ; Pain in right toe(s) M79.674 and Pain in left toe(s) M79.[address] [address] 01/03/2025 Iris Obrien Atherosclerosis of round valley artery of both lower extremities, with unspecified presence of clinical manifestation I70.203 ; Tinea unguium B35.1 ; Pain in right toe(s) M79.674 and Pain in left toe(s) M79.[address] [address] 08/07/2024 Iris Obrien Assessments Encounter Date Diagnosis (ICD Code) Assessment Notes Treatment Notes Treatment Clinical Notes Section Notes 06/06/2024 Tinea unguium (ICD-10 - B35.1) 06/06/2024 Atherosclerosis of round valley artery of both lower extremities, with unspecified presence of clinical manifestation (ICD-10 - I70.203) Q7(A), Q8(2B), Q9(1B,2C) 10/03/2024 Tinea unguium (ICD-10 - B35.1) 10/03/2024 Atherosclerosis of round valley artery of both lower extremities, with unspecified presence of clinical manifestation (ICD-10 - I70.203) Q7(A), Q8(2B), Q9(1B,2C) 01/03/2025 Tinea unguium (ICD-10 - B35.1) 01/03/2025 Atherosclerosis of round valley artery of both lower extremities, with [...] Treatment Pending Test Test Name Order Date 07052-UEYKMNN NAIL, 6 OR MORE 03/07/2024 74955-UDHQLET NAIL, 6 OR MORE 06/06/2024 93673-UEFILWT NAIL, 6 OR MORE 10/03/2024 81093-LLDZMQG NAIL, 6 OR MORE 01/03/2025 83934-QAKS SKIN LESIONS, OVER 4 04/15/20 69601-SMHJ SKIN LESIONS, 2 TO 4 07/30/19 07635-GXIQ SKIN LESIONS, 2 TO 4 11/03/19 87309-HMTB SKIN LESIONS, 2 TO 4 07/09/19 17294-YIDJ SKIN LESIONS, 2 TO 4 10/09/19 65059-NNJS SKIN LESIONS, 2 TO 4 01/15/20 20060-Eaqg. Subungual Hematoma 4 V1896-TBOUIPIY DYSTROPHIC NAILS ANY # 05 / O3527-QKWBSXTJ DYSTROPHIC NAILS ANY # 40838-QGDABJBE OF HEMATOMA/FLUID 023 Next Appt Details Provider Name:Iris alexis, 04/10/2025 09:30:00 AM, [address] [facility], [place], [address], Insurance Providers Payer Name Payer Address Payer Phone Subscriber Number Group Number Insured Name Patient Relationship to Insured Coverage Start Date Coverage End Date Medicare National Govt [facility] [address] [place] [address] [id number] Jenni Cui Self - patient is the insured [employer] (Unicare) [address] [place] [address] [id number] Jenni Cui Self - patient is the insured Medical (General) History Medical History History ICD Code rheumatoid arthritis osteoarthritis Anemia Back pain basal cell carcinoma Cataracts Diverticulosis Osteoporosis blood clots in lungs Measles Mumps Chicken pox Transfusions 2000 Surgical History Surgery Date(Month/Year) hysterectomy 1988 arthroscopic knee surgery 2001 intestinal surgery, repair 2018 mohs surgery 03/26/21
--- OUTSIDE RECORDS SUMMARY | 2025-03-19 11:25 | XMS_ITS | Clinical Summary ---
Author Organization [facility] Address [address] [facility] [address] [place] [address] Phone Care Team Providers Care Street Vendor Name Role Phone Randy Chi MD Primary [...] Encounters Date Type Department Care Team Description 03/12/2025 Transcribe Orders [facility] Rheumatology - Virtual Department [address] [place] [address] Heather Varghese MD Rheumatoid arthritis (Primary Dx) 02/04/2025 Telephone [facility] Rheumatology [address] [place] [address] Natalie Jaime MD, MPH Referral from Last [...] 02/23/2021 3:03 PM EDT Plan of Treatment Upcoming Encounters Date Type Department Care Team (Late st Contact Info) Description 05/02/2025 1:00 PM EST Office Visit [facility] Rheumatology [address] [place] [address] Rhona Moseley, DO [address] [place] [address], [address] [place] [address] [email or web address] Health Maintenance Due Date Last Done Comments [...] topic Medical Devices [place] [id number] MEDICARE PART A & B [employer] [place] [address] MEDICARE PART A & B [employer] MEDICARE SUPPLEMENT MEDICARE PART A & B [facility] [place] [address] MEDICARE PART A & B [facility] EX[employer]ION [place] [address] MEDICARE PART A & B [facility] EXTENSION [place] [id number] MEDICARE PART A & B [facility] EXTENSION MEDICARE SUPPLEMENT MEDICARE PART A & B [facility] EXTENSION [place] [address] MEDICARE PART A & B [employer] [place] [id number] [place] [address] MEDICARE PART A & B [employer] [place] [address] Vendor Relationship Specialty Start Date End Date Randy Chi MD [address] [place] [address] [place] [address] PCP - General Internal Medicine 02/16/21 Additional Source Comments The information contained in this document represents components of the legal health record. It is not the complete legal health record.[facility]
--- OUTSIDE RECORDS SUMMARY | 2025-03-19 11:25 | XMS_ITS | Encounter Summary ---
Author Organization [facility] Address [address] [facility] [address] [place] [address] Phone Care Team Providers Care High School Math Tutor Name Role Phone Randy Chi MD Primary Care Provider Encounter Details Date Type Department Care Team (Late st Contact Info) Description 03/31/2021 Procedure Pass OR Admitting Dept - Virtual Department [address] [place] [address] Social History Tobacco Use Types Packs/Day Years [...] as of this encounter Plan of Treatment Upcoming Encounters Date Type Department Care Team (Late st Contact Info) Description 05/02/2025 1:00 PM EST Office Visit [facility] Rheumatology [address] [place] [address] Rhona Moseley, DO [address] [facility], [address] [place] [address] [email or web address] documented as of this encounter Visit Diagnoses Not on filedocumented in this encounter Care Teams High School Math Tutor Relationship Specialty Start Date End Date Randy Chi MD [address] [place] [address] [place] [address] PCP - General Internal Medicine 02/16/21 documented as of this encounter Additional Source Comments The information contained in this document represents components of the legal health record. It is not the complete legal health record.[facility]
--- NOTE | 2025-03-19 11:49 | AM.OFFVISNUR ---
Intake Visit Reasons: Osteoporosis/prolia injection Allergies estrogens, conjugated (From Premarin) Allergy (Verified 02/08/25 11:15) vaginal bleeding Office Meds Prolia 60 mg/mL subcutaneous syringe Performing Provider: Heather Varghese MD [place] [facility] [place] [facility] Administered by: Helen Platt RN on 03/19/25 11:50 Dose Route Admin Location Dispensed Lot Number Expiration Date NDC [employer] 60 mg subcut left posterior arm 1 mL [id number] 05/15/27 84071-429-26 [employer] Total Dispensed Waste 1 mL 0 % Comments: Jenni arrived today for her first Prolia injection. We reviewed common side effects and adverse reactions. The site was clear, dry, and intact. She tolerated the injection to her left posterior arm with no issues. She stayed for an additional 20 minutes so we could monitor her post injection, since this was her first visit. No reaction or adverse effects. She scheduled her next injection and departed with her son. Assessment & Plan Assessment & Plan Orders: Orders AMB Denosumab Injection Practice Supplied Today M81.0 - Age-related osteoporosis without current pathological fracture Coding
== END 2025-03-19 10:09 | disposition home or self-care (01) ==
LOC: HO.RHES 09:55
PROVIDERS: PCP Physician Assistant; Visit Provider Student in an Organized Health Care Education/Training Program
DX: M81.0 Age-related osteoporosis without current pathological fracture (principal)

== ENCOUNTER → 2025-03-19 09:55 | Outpatient (BNVA) | payer MEDICARE, OTHER, SELFPAY | PROVIDERS: PCP Physician Assistant; Visit Provider Student in an Organized Health Care Education/Training Program | DX: M81.0 Age-related osteoporosis without current pathological fracture (principal) | CPT/HCPCS: 96372; J0897 ==